=== PATIENT | male | born 1955 ===

== ENCOUNTER 2019-11-30 10:33 | Emergency (ER) | payer OTHER ==
[~2019-11-30] VITALS: Ht 165.1 cm; Wt 113.4 kg
[~2019-11-30 10:33] MED LIST: ACET325 PO; ASPI325 PO; LISI20 PO; METO50 PO; MULVITMIND PO; SIMV10 PO
[2019-11-30] MEDS ORDERED: CODACE30 PO (12:04)
[2019-11-30] MEDS ORDERED: PENVK500 PO (12:04)
== END 2019-11-30 12:23 | disposition home or self-care (01) ==
LOC: ER 10:33
DX: S01.81XA Laceration without foreign body of other part of head, initial encounter (principal); K08.89 Other specified disorders of teeth and supporting structures; Z79.899 Other long term (current) drug therapy; W22.8XXA Striking against or struck by other objects, initial encounter; Y92.89 Other specified places as the place of occurrence of the external cause
CPT/HCPCS: 12013; 99283-25

== ENCOUNTER 2019-12-05 17:23 | Emergency (ER) | payer OTHER ==
[~2019-12-05] VITALS: Ht 165.1 cm; Wt 117.9 kg
[~2019-12-05 17:23] MED LIST changes: +CODACE30 PO; +PENVK500 PO
== END 2019-12-05 17:53 | disposition other institution (70) ==
LOC: ER 17:23
DX: S01.511D Laceration without foreign body of lip, subsequent encounter (principal); Z79.899 Other long term (current) drug therapy; X58.XXXD Exposure to other specified factors, subsequent encounter

== ENCOUNTER 2021-01-02 11:46 | Inpatient (IN) | payer OTHER ==
[~2021-01-02] VITALS: Ht 170.2 cm; Wt 105.5 kg
[2021-01-02 12:40] LABS: Hematocrit 41.2 % (37.0-53.0); Hemoglobin 14.1 g/dL (13.5-17.5); Mean Corpuscular HGB 30.1 pg (26.0-34.0); Mean Corpuscular HGB Conc 34.2 g/dL (31.5-36.5); Mean Corpuscular Volume 88 fL (80-100); Mean Platelet Volume 10.2 fL (9.1-12.4); Platelet Count 257 K/mm3 (150-400); RDW Coefficient Variation 13.8 % (11.7-14.2); RDW Standard Deviation 44.2 fL (35.1-46.3); Red Blood Cell Count 4.69 M/mm3 (4.30-5.90); White Blood Cell Count 5.96 K/mm3 (4.00-11.30)
[2021-01-02 13:16] LABS: BAND PERCENT MAN 25 % (0-8); BASOPHILS PERCENT MAN 0 % (0-2); EOSINOPHILS PERCENT MAN 0 % (0-6); LYMPHOCYTES % ATYPICAL MANUAL 8 % (0-0); LYMPHOCYTES ABSOLUTE MAN 0.89 K/mm3 (0.84-5.20); LYMPHOCYTES PERCENT MAN 7 % (21-46); METAMYELOCYTE ABSOLUTE MAN 0.23 K/mm3 (0.00-0.00); METAMYELOCYTE PERCENT MAN 4 % (0-0); MONOCYTES ABSOLUTE MAN 0.17 K/mm3 (0.16-1.47); MONOCYTES PERCENT MAN 3 % (4-13); MYELOCYTE ABSOLUTE MAN 0.23 K/mm3 (0.00-0.00); MYELOCYTE PERCENT MAN 4 % (0-0); NEUTROPHILS ABSOLUTE MAN 4.41 K/mm3 (1.96-9.15); SEG NEUTROPHILS PERCENT MAN 49 % (41-73); TOTAL CELLS COUNTED 100
[2021-01-02 13:17] LABS: Alanine Aminotransfer (ALT/SGP 26 U/L (12-78); Albumin, Blood 1.5 g/dL (3.4-5.0); Albumin/Globulin Ratio 0.2 (0.8-1.8); Alk Phos 64 U/L (50-136); Anion Gap 11 mmol/L (6-16); Aspartate Aminotrans (AST/SGOT 30 U/L (12-37); Bilirubin, Total 0.7 mg/dL (0.1-1.0); Blood Urea Nitrogen 36 mg/dL (8-24); Bun/Creatinine Ratio 29.8 (12.0-20.0); CO2, Blood 22 mmol/L (21-32); Chloride, Blood 94 mmol/L (98-108); Creatinine, Blood 1.21 mg/dL (0.60-1.20); Globulin, Blood 6.2 g/dL (2.2-4.0); Glomerular Filtration Rate >60 (60-); Glucose, Blood 324 mg/dL (70-99); Potassium, Blood 4.4 mmol/L (3.5-5.5); Sodium, Blood 127 mmol/L (136-145); Total Protein, Blood 7.7 g/dL (6.4-8.2)
[2021-01-02] MEDS ORDERED: AMLO5 PO (17:01)
[2021-01-02] MEDS ORDERED: ATOR20 PO (17:02)
[2021-01-02] MEDS ORDERED: LISI20 PO (17:02)
[2021-01-02] MEDS ORDERED: ATEN100 PO (17:02)
[2021-01-02 17:22] LABS: SARS-Cov-2 (COVID-19) PCR, MMC NEGATIVE (NEGATIVE)
--- NOTE | 2021-01-02 18:43 | NUR ---
SHIFT SUMMARY PT ADMITTED FROM THE ED FOR A PERF APPY. PAINFUL UPON ARRIVE BUT WAS TREATED PER EMR AND PAIN IS NOW MANAGED. ABD IS DISTENDED AND TENDER. PT SPEAKS TOGOLESE BUT SPEAKS SOME ENGLIGH. MAY POSSIBLY GO TO SURGERY TONIGHT OR TOMORROW AM. PT KEPT NPO UNTIL SURGERY TIME IS MORE CLEAR. VSS. WILL REPORT TO URVASHI ANDERSON.
[2021-01-02 23:01] LABS: Bun/Creatinine Ratio 31.3 (12.0-20.0); Calcium, Blood 8.3 mg/dL (8.5-10.1); Creatinine, Blood 1.66 mg/dL (0.60-1.20); Potassium, Blood 4.2 mmol/L (3.5-5.5)
[2021-01-03 03:59] LABS: Hematocrit 37.9 % (37.0-53.0); Hemoglobin 12.7 g/dL (13.5-17.5); Mean Corpuscular HGB 29.6 pg (26.0-34.0); Mean Corpuscular HGB Conc 33.5 g/dL (31.5-36.5); Mean Corpuscular Volume 88 fL (80-100); Mean Platelet Volume 10.1 fL (9.1-12.4); NRBC ABSOLUTE 0.04 K/mm3 (0.00-0.02); NRBC Auto 0.7 /100 WBC (0.0-0.2); Platelet Count 198 K/mm3 (150-400); RDW Coefficient Variation 14.1 % (11.7-14.2); RDW Standard Deviation 45.6 fL (35.1-46.3); Red Blood Cell Count 4.29 M/mm3 (4.30-5.90); White Blood Cell Count 5.55 K/mm3 (4.00-11.30)
[2021-01-03 04:00] LABS: BASOPHILS ABSOLUTE AUTO 0.03 K/mm3 (0.00-0.23); BASOPHILS PERCENT AUTO 1 % (0-2); EOSINOPHILS PERCENT AUTO 0 % (0-6); IMMATURE GRAN ABSOLUTE AUTO 0.03 K/mm3 (0.00-0.10); IMMATURE GRAN PERCENT AUTO 1 % (0-1); LYMPHOCYTES ABSOLUTE AUTO 0.53 K/mm3 (0.84-5.20); LYMPHOCYTES PERCENT AUTO 10 % (21-46); MONOCYTES ABSOLUTE AUTO 0.43 K/mm3 (0.16-1.47); MONOCYTES PERCENT AUTO 8 % (4-13); NEUTROPHILS ABSOLUTE AUTO 4.53 K/mm3 (1.96-9.15); NEUTROPHILS PERCENT AUTO 82 % (41-73)
[2021-01-03 04:15] LABS: International Normalized Ratio 1.08; Prothrombin Time Results 11.3 Sec (9.7-11.5)
[2021-01-03 04:22] LABS: Bun/Creatinine Ratio 31.6 (12.0-20.0); Creatinine, Blood 1.87 mg/dL (0.60-1.20); Magnesium, Blood 3.7 mg/dL (1.6-2.4); Potassium, Blood 3.8 mmol/L (3.5-5.5)
[2021-01-03 04:36] LABS: BAND PERCENT MAN 45 % (0-8); BASOPHILS PERCENT MAN 0 % (0-2); EOSINOPHILS PERCENT MAN 0 % (0-6); LYMPHOCYTES ABSOLUTE MAN 0.49 K/mm3 (0.84-5.20); LYMPHOCYTES PERCENT MAN 9 % (21-46); METAMYELOCYTE ABSOLUTE MAN 0.77 K/mm3 (0.00-0.00); METAMYELOCYTE PERCENT MAN 14 % (0-0); MONOCYTES ABSOLUTE MAN 0.33 K/mm3 (0.16-1.47); MONOCYTES PERCENT MAN 6 % (4-13); MYELOCYTE ABSOLUTE MAN 0.44 K/mm3 (0.00-0.00); MYELOCYTE PERCENT MAN 8 % (0-0); NEUTROPHILS ABSOLUTE MAN 3.49 K/mm3 (1.96-9.15); SEG NEUTROPHILS PERCENT MAN 18 % (41-73); TOTAL CELLS COUNTED 100
--- NOTE | 2021-01-03 11:23 | NUR ---
01/03/21 1123 Ashley Warren PATIENT ON SCHEDULED ZOSYN. RECEIVED 3.375G @ 0532 01/03/21.
--- NOTE | 2021-01-03 14:04 | NUR ---
PT TO PACU, PRESTON DRESSING HOLDING SUCTION, SMALL DRAINAGE X2, ABOUT DIME SIZE EACH, SISI DRAIN EMPTIED AND NEW DRESSING APPLIED. PT W/ DISTENDED ABD, BLANCHING, SLOW CAP REFILL, MD AWARE. URINARY CATH IN PLACE, SMALL AMOUNT OF CLOUDY YELLOW DRAINAGE NOTED IN TUBING. PT WITHDRAWS FROM TOUCH. NG TUBE IN PLACE FROM OR, CONNECTED TO SUCTION AT LOW INTERMITTENT. GREEN DRAINAGE NOTED IN SUCTION TUBING.
--- NOTE | 2021-01-03 16:43 | NUR ---
ARRIVAL TO PCU/SHIFT SUMMARY PATIENT ARRIVED APROX 1530. PATIENT A/OX4. VSS. TELE SR 71. SOFT BP. SPO2 >90% ON 6L OXYIMEZER. PATIENT DAUGHTER AT BEDSIDE AND IS ABLE TO TRANSLATE FOR THE PATIENT. PATIENT IS VINCENTIAN SPEAKING. PATRICIA TUBE DRAINING, SEROSANGUINEOUS DRAINING. PRESTON DRESSING IN PLACE WITH SCANT AMOUNT OF BLOOD THAT HAS BEEN THERE SINCE PACU, NO NEW DRAINING. LEFT ABD BLANCHABLE, BUT CAP REFILL GREAT THAN 3SECONDS. MD ESPOSITO IS AWARE OF THIS. LEFT ABD TENDER. PATIENT REPORTS PAIN, AND RECEIVED PAIN MED PER EMAR. CLEAR AND DIM LUNG SOUNDS. CALL LIGHT WITHIN REACH. DAUGHTER AT BEDSIDE. WILL CONTINUE TO MONITOR AND PROVIDE CARE UNTIL HAND OFF WITH NEXT SHIFT.
[2021-01-04 04:09] LABS: Hemoglobin 12.5 g/dL (13.5-17.5); Mean Corpuscular HGB 29.8 pg (26.0-34.0); Mean Corpuscular HGB Conc 33.8 g/dL (31.5-36.5); Mean Corpuscular Volume 88 fL (80-100); Mean Platelet Volume 10.3 fL (9.1-12.4); NRBC ABSOLUTE 0.05 K/mm3 (0.00-0.02); NRBC Auto 0.5 /100 WBC (0.0-0.2); Platelet Count 194 K/mm3 (150-400); RDW Coefficient Variation 14.6 % (11.7-14.2); RDW Standard Deviation 46.7 fL (35.1-46.3); White Blood Cell Count 9.89 K/mm3 (4.00-11.30)
[2021-01-04 04:31] LABS: BAND PERCENT MAN 38 % (0-8); BASOPHILS PERCENT MAN 0 % (0-2); EOSINOPHILS PERCENT MAN 0 % (0-6); LYMPHOCYTES ABSOLUTE MAN 0.49 K/mm3 (0.84-5.20); LYMPHOCYTES PERCENT MAN 5 % (21-46); METAMYELOCYTE ABSOLUTE MAN 1.38 K/mm3 (0.00-0.00); METAMYELOCYTE PERCENT MAN 14 % (0-0); MONOCYTES ABSOLUTE MAN 0.19 K/mm3 (0.16-1.47); MONOCYTES PERCENT MAN 2 % (4-13); MYELOCYTE ABSOLUTE MAN 0.09 K/mm3 (0.00-0.00); MYELOCYTE PERCENT MAN 1 % (0-0); NEUTROPHILS ABSOLUTE MAN 7.71 K/mm3 (1.96-9.15); SEG NEUTROPHILS PERCENT MAN 40 % (41-73); TOTAL CELLS COUNTED 100
[2021-01-04 04:37] LABS: Magnesium, Blood 3.8 mg/dL (1.6-2.4)
[2021-01-04 04:49] LABS: Albumin, Blood 0.7 g/dL (3.4-5.0); Albumin/Globulin Ratio 0.1 (0.8-1.8); Bilirubin, Total 0.4 mg/dL (0.1-1.0); Bun/Creatinine Ratio 39.3 (12.0-20.0); Calcium, Blood 7.7 mg/dL (8.5-10.1); Creatinine, Blood 1.83 mg/dL (0.60-1.20); Globulin, Blood 5.6 g/dL (2.2-4.0); Potassium, Blood 4.3 mmol/L (3.5-5.5); Total Protein, Blood 6.3 g/dL (6.4-8.2)
--- NOTE | 2021-01-04 06:10 | NUR ---
SHIFT SUMMARY PT IS ALERT AND ORIENTED. PT HAS BEEN VERY PAINFUL T/O THE NIGHT AND HAS BEEN MEDICATED PER EMAR. NG DRAINING WITH SUCTION. SISI DRAINAGE IS SEROSANGUINEOUS. MEREDITH IN PLACE AND DRAINING TO GRAVITY. HAS BEEN REPOSITIONING WITH ASSISTANCE AND TOLERATES WELL. PT IS POLISH SPEAKING ONLY AND SON IS IN THE ROOM TO HELP FACILITATE CARE. PT IS ON 2L NC WITH SATS ABOVE 92%. VSS. ABDOMEN IS FIRM, DISTENDED AND TENDER. CALL LIGHT IS WITHIN REACH. WILL CONTINUE TO MONITOR.
--- NOTE | 2021-01-04 08:05 | NUR ---
CARE ASSUMPTION PATIENT A/O X4. SON AT BEDSIDE. PATIENT IS COMORAN SPEAKING. VSS. SPO2 >90% ON 2L NC. PATIENT PRESTON DRESSING IN PLACE WITH SCANT AMOUNT OF BLOOD THAT HAS REMAINED UNCHANGED SINCE ARRIVING FROM PACU. PATIENT NG TUBE DC AND REMOVED. CALL LIGHT WITHIN REACH. WILL CONTINUE TO MONITOR AND PROVIDE CARE.
--- NOTE | 2021-01-04 17:36 | NUR ---
SHIFT SUMMARY POD #1 FOR A PERF OPEN APPY. MIDLINE PRESTON DRESSING IN PLACE WITH A MINIMAL AMOUNT OF DRAINAGE NOTED, OTHERWISE CDI. SISI DRAIN TO LLQ WITH SS FLUID. PAIN MANAGED PER EMR. DAUGHTER AT BEDSIDE THIS SHIFT. GLUCOSE CHECKS CHANGED TO ACHS. VSS. WILL REPORT TO URVSAHI RN.
[2021-01-05 03:59] LABS: Hematocrit 35.5 % (37.0-53.0); Mean Corpuscular HGB 29.4 pg (26.0-34.0); Mean Corpuscular HGB Conc 33.8 g/dL (31.5-36.5); Mean Corpuscular Volume 87 fL (80-100); Mean Platelet Volume 10.5 fL (9.1-12.4); NRBC ABSOLUTE 0.06 K/mm3 (0.00-0.02); NRBC Auto 0.5 /100 WBC (0.0-0.2); Platelet Count 224 K/mm3 (150-400); RDW Coefficient Variation 14.6 % (11.7-14.2); RDW Standard Deviation 46.8 fL (35.1-46.3); Red Blood Cell Count 4.08 M/mm3 (4.30-5.90); White Blood Cell Count 11.93 K/mm3 (4.00-11.30)
[2021-01-05 04:26] LABS: Albumin, Blood 0.8 g/dL (3.4-5.0); Albumin/Globulin Ratio 0.1 (0.8-1.8); Bilirubin, Total 0.5 mg/dL (0.1-1.0); Bun/Creatinine Ratio 51.6 (12.0-20.0); Calcium, Blood 8.1 mg/dL (8.5-10.1); Creatinine, Blood 1.22 mg/dL (0.60-1.20); Globulin, Blood 5.6 g/dL (2.2-4.0); Potassium, Blood 3.7 mmol/L (3.5-5.5); Total Protein, Blood 6.4 g/dL (6.4-8.2)
[2021-01-05 05:38] LABS: BAND PERCENT MAN 42 % (0-8); BASOPHILS PERCENT MAN 0 % (0-2); EOSINOPHILS PERCENT MAN 0 % (0-6); LYMPHOCYTES ABSOLUTE MAN 0.35 K/mm3 (0.84-5.20); LYMPHOCYTES PERCENT MAN 3 % (21-46); MONOCYTES ABSOLUTE MAN 0.11 K/mm3 (0.16-1.47); MONOCYTES PERCENT MAN 1 % (4-13); MYELOCYTE ABSOLUTE MAN 0.23 K/mm3 (0.00-0.00); MYELOCYTE PERCENT MAN 2 % (0-0); NEUTROPHILS ABSOLUTE MAN 11.21 K/mm3 (1.96-9.15); SEG NEUTROPHILS PERCENT MAN 52 % (41-73); TOTAL CELLS COUNTED 100
--- NOTE | 2021-01-05 17:12 | NUR ---
SUMMARY: PT IS POD2 OPEN APPY. PT IS A/O, VSS. SURGICAL SITES WNL. CLOUDY SS FLUID FROM SISI DRAIN, SEE OUTPUT. TELE DC'D THIS MORNING. PT REPORTS NO FLATUS, HYPOACTIVE BOWEL TONES. TOLERATING CLEAR LIQ DIET, NO N/V. DENIES NEED FOR PAIN MEDICATIONS, PT ENCOURAGED TO AMBULATE TODAY, WORKED WITH THERAPY AND WALKED IN HALLS. PT FRIEND IN ROOM TODAY, AND ABLE TO TRANSLATE, PT APPEARS TO UNDERSTAND A FAIR AMT OF [place]. NO ACUTE SAFETY CONCERNS, WILL CTM AND REPORT TO URVASHI RN.
[2021-01-06 04:39] LABS: Hematocrit 36.1 % (37.0-53.0); Hemoglobin 12.3 g/dL (13.5-17.5); Mean Corpuscular HGB 29.9 pg (26.0-34.0); Mean Corpuscular HGB Conc 34.1 g/dL (31.5-36.5); Mean Corpuscular Volume 88 fL (80-100); NRBC ABSOLUTE 0.05 K/mm3 (0.00-0.02); NRBC Auto 0.3 /100 WBC (0.0-0.2); Platelet Count 255 K/mm3 (150-400); RDW Coefficient Variation 14.7 % (11.7-14.2); Red Blood Cell Count 4.12 M/mm3 (4.30-5.90); White Blood Cell Count 15.53 K/mm3 (4.00-11.30)
[2021-01-06 04:59] LABS: Anion Gap 6 mmol/L (6-16); Blood Urea Nitrogen 52 mg/dL (8-24); Bun/Creatinine Ratio 53.8 (12.0-20.0); CO2, Blood 26 mmol/L (21-32); Calcium, Blood 7.8 mg/dL (8.5-10.1); Chloride, Blood 100 mmol/L (98-108); Creatinine, Blood 0.97 mg/dL (0.60-1.20); Glomerular Filtration Rate >60 (60-); Glucose, Blood 170 mg/dL (70-99); Potassium, Blood 3.4 mmol/L (3.5-5.5); Sodium, Blood 132 mmol/L (136-145)
[2021-01-06 05:19] LABS: BAND PERCENT MAN 13 % (0-8); BASOPHILS PERCENT MAN 0 % (0-2); EOSINOPHILS PERCENT MAN 0 % (0-6); LYMPHOCYTES ABSOLUTE MAN 1.39 K/mm3 (0.84-5.20); LYMPHOCYTES PERCENT MAN 9 % (21-46); METAMYELOCYTE ABSOLUTE MAN 0.15 K/mm3 (0.00-0.00); METAMYELOCYTE PERCENT MAN 1 % (0-0); MONOCYTES ABSOLUTE MAN 0.31 K/mm3 (0.16-1.47); MONOCYTES PERCENT MAN 2 % (4-13); NEUTROPHILS ABSOLUTE MAN 13.66 K/mm3 (1.96-9.15); SEG NEUTROPHILS PERCENT MAN 75 % (41-73); TOTAL CELLS COUNTED 100
--- NOTE | 2021-01-06 08:00 | NUR ---
SUMMARY REPORTED TO ROSSI ANDERSON.DISCUSSED INCREASED WBC,SISI WITH GREEN/SERO DRNG,AND ERYTHEMA BLANCHES, BUT CONT L FLANK AND HIP.ABD REMAINS LARGELY DISTENDED WITH NO FLATUS.ROSSI ECHEVARRIA AGREES TO FOLLOW UP ON MY CONCERNS WHEN MAKES ROUNDS.
--- NOTE | 2021-01-06 16:31 | NUR ---
SUMMARY: PT IS POD3 COLECTOMY. PT IS A/O, VSS. ABD IS SERVERALY DISTENDED, PT DENIES PASSING FLATUS. SISI DRAIN DID NOT NEED EMPTIED, SCANT AMT OF CLOUDY SS FLUID PRESENT AND BULB COMPRESSED. PT REPORTS SMALL AMT OF PAIN AT INCISION AND R FLANK, DENIES NEED FOR PAIN MEDICATION. NOTED REDNESS TO L FLANK, DR. ESPOSITO IS AWARE. OTHERWISE SUGICAL SITES AND PRESTON DRAIN WNL. PT YURI CLEAR LIQ DIET WITHOUT N/V. NO SAFETY CONCERNS AT THIS TIME, WILL REPORT TO URVASHI ANDERSON.
[2021-01-07 04:28] LABS: Hematocrit 39.6 % (37.0-53.0); Hemoglobin 13.1 g/dL (13.5-17.5); Mean Corpuscular HGB 29.2 pg (26.0-34.0); Mean Corpuscular HGB Conc 33.1 g/dL (31.5-36.5); Mean Corpuscular Volume 88 fL (80-100); Mean Platelet Volume 10.1 fL (9.1-12.4); NRBC ABSOLUTE 0.03 K/mm3 (0.00-0.02); NRBC Auto 0.2 /100 WBC (0.0-0.2); Platelet Count 299 K/mm3 (150-400); RDW Coefficient Variation 14.9 % (11.7-14.2); RDW Standard Deviation 48.5 fL (35.1-46.3); Red Blood Cell Count 4.48 M/mm3 (4.30-5.90); White Blood Cell Count 16.53 K/mm3 (4.00-11.30)
[2021-01-07 04:30] LABS: BASOPHILS ABSOLUTE AUTO 0.02 K/mm3 (0.00-0.23); BASOPHILS PERCENT AUTO 0 % (0-2); EOSINOPHILS ABSOLUTE AUTO 0.08 K/mm3 (0.00-0.68); EOSINOPHILS PERCENT AUTO 1 % (0-6); IMMATURE GRAN ABSOLUTE AUTO 1.52 K/mm3 (0.00-0.10); IMMATURE GRAN PERCENT AUTO 9 % (0-1); LYMPHOCYTES PERCENT AUTO 11 % (21-46); MONOCYTES ABSOLUTE AUTO 0.47 K/mm3 (0.16-1.47); MONOCYTES PERCENT AUTO 3 % (4-13); NEUTROPHILS ABSOLUTE AUTO 12.64 K/mm3 (1.96-9.15); NEUTROPHILS PERCENT AUTO 77 % (41-73)
[2021-01-07 04:44] LABS: Alanine Aminotransfer (ALT/SGP 94 U/L (12-78); Albumin, Blood 1.3 g/dL (3.4-5.0); Albumin/Globulin Ratio 0.3 (0.8-1.8); Alk Phos 96 U/L (50-136); Anion Gap 8 mmol/L (6-16); Aspartate Aminotrans (AST/SGOT 121 U/L (12-37); Bilirubin, Total 0.5 mg/dL (0.1-1.0); Blood Urea Nitrogen 33 mg/dL (8-24); Bun/Creatinine Ratio 41.1 (12.0-20.0); CO2, Blood 25 mmol/L (21-32); Calcium, Blood 7.7 mg/dL (8.5-10.1); Chloride, Blood 100 mmol/L (98-108); Globulin, Blood 5.1 g/dL (2.2-4.0); Glomerular Filtration Rate >60 (60-); Glucose, Blood 160 mg/dL (70-99); Magnesium, Blood 3.2 mg/dL (1.6-2.4); Potassium, Blood 3.5 mmol/L (3.5-5.5); Sodium, Blood 133 mmol/L (136-145); Total Protein, Blood 6.4 g/dL (6.4-8.2)
[2021-01-07 04:57] LABS: BAND PERCENT MAN 14 % (0-8); BASOPHILS PERCENT MAN 0 % (0-2); EOSINOPHILS PERCENT MAN 0 % (0-6); LYMPHOCYTES ABSOLUTE MAN 0.99 K/mm3 (0.84-5.20); LYMPHOCYTES PERCENT MAN 6 % (21-46); METAMYELOCYTE ABSOLUTE MAN 0.49 K/mm3 (0.00-0.00); METAMYELOCYTE PERCENT MAN 3 % (0-0); MONOCYTES ABSOLUTE MAN 0.33 K/mm3 (0.16-1.47); MONOCYTES PERCENT MAN 2 % (4-13); MYELOCYTE ABSOLUTE MAN 0.66 K/mm3 (0.00-0.00); MYELOCYTE PERCENT MAN 4 % (0-0); NEUTROPHILS ABSOLUTE MAN 13.88 K/mm3 (1.96-9.15); PROMYELOCYTE ABSOLUTE MAN 0.16 K/mm3 (0.00-0.00); PROMYELOCYTE PERCENT MAN 1 % (0-0); SEG NEUTROPHILS PERCENT MAN 70 % (41-73); TOTAL CELLS COUNTED 100
--- NOTE | 2021-01-08 | NUR ---
PT CALLED RES COUNSELOR, RES COUNSELOR ENTERED ROOM TO FIND PT VOMITING INTO EMESIS BAG, 300CC. MEASURED @ THIS TIME. DR. ESPOSITO CONTACTED FOR ADDITIONAL NAUSEA MEDICATION. AWAITING RESPONSE.
--- NOTE | 2021-01-08 01:34 | NUR ---
PT APPEARS TO BE UNCOMFORTABLE. CALLED CAMPUS RECEPTIONIST TO GET AN ASSISTANCE IN ASSESSING AND EVALUATING PT'S NEED. PT REPORTS PAIN. DILAUDID 0.5MG GIVEN HALF AN HOUR AGO. PT APPEARS OUT BREATH BUT VSS. PT DENIES SOB, CHEST PAIN, NAUSEA AND VOMITING. PT HAD BEEN DRINKING A LOT OF WATER. ADVICE TO SLOW DOWN IN DRINKING WATER BECAUSE HIS ABD MAY NOT TOLERATE IT WELL. PT AGREED AND UNDERSTOOD PER CAMPUS RECEPTIONIST. PT ALSO DENIES ANY DIZZINESS. CALL LIGHT WITHIN REACH. WILL CONTINUE TO MONITOR.
[2021-01-08 02:22] LABS: Hemoglobin 15.2 g/dL (13.5-17.5); Mean Corpuscular HGB 29.6 pg (26.0-34.0); Mean Corpuscular HGB Conc 33.8 g/dL (31.5-36.5); Mean Corpuscular Volume 88 fL (80-100); NRBC ABSOLUTE 0.05 K/mm3 (0.00-0.02); NRBC Auto 0.2 /100 WBC (0.0-0.2); Platelet Count 378 K/mm3 (150-400); RDW Coefficient Variation 14.8 % (11.7-14.2); RDW Standard Deviation 47.9 fL (35.1-46.3); Red Blood Cell Count 5.13 M/mm3 (4.30-5.90); White Blood Cell Count 23.41 K/mm3 (4.00-11.30)
--- NOTE | 2021-01-08 02:35 | NUR ---
DR. ESPOSITO CONTACTED THIS RN CONTACTED DR. ESPOSITO IN REGARDS TO CHANGE IN MENTATION, INCREASING ABD DISTENTION, INCREASE IN REDDENDED AREA ON LEFT SIDE, AND N/V @ THIS TIME.
[2021-01-08 02:37] LABS: Anion Gap 12 mmol/L (6-16); Blood Urea Nitrogen 37 mg/dL (8-24); Bun/Creatinine Ratio 34.6 (12.0-20.0); CO2, Blood 21 mmol/L (21-32); Chloride, Blood 101 mmol/L (98-108); Creatinine, Blood 1.07 mg/dL (0.60-1.20); Glomerular Filtration Rate >60 (60-); Glucose, Blood 260 mg/dL (70-99); Potassium, Blood 3.7 mmol/L (3.5-5.5); Sodium, Blood 134 mmol/L (136-145)
[2021-01-08 02:40] LABS: BAND PERCENT MAN 29 % (0-8); BASOPHILS PERCENT MAN 0 % (0-2); EOSINOPHILS PERCENT MAN 0 % (0-6); LYMPHOCYTES PERCENT MAN 3 % (21-46); MONOCYTES ABSOLUTE MAN 1.17 K/mm3 (0.16-1.47); MONOCYTES PERCENT MAN 5 % (4-13); MYELOCYTE ABSOLUTE MAN 0.23 K/mm3 (0.00-0.00); MYELOCYTE PERCENT MAN 1 % (0-0); SEG NEUTROPHILS PERCENT MAN 62 % (41-73); TOTAL CELLS COUNTED 100
--- NOTE | 2021-01-08 04:36 | NUR ---
NG TUBE PLACEMENT NG TUBE WAS PLACED AT 0415 @ LIS. PT TOLERATED WELL, INTERPRETTER ON PHONE ASSISTED W/ INSTRUCTION AND CONSENT. CANISTER WAS EMPTIED @ 0435 W/ OUTPUT OF 1000ML W/ DARK RED/BROWNISH DRAINAGE, SISI DRAIN WAS EMPTIED WELL W/ 85ML (IN LAST COUPLE HOURS) W/ SS DRAINAGE. PT RESTING IN BED @ THIS TIME.
--- NOTE | 2021-01-08 05:02 | NUR ---
SHIFT SUMMARY PT C/O PAIN T/O SHIFT. MEDICATED PER EMAR, REPOSITIONED, PROVIDED W/ WARM BLANKETS. N/V T/O SHIFT, MEDICATED PER EMAR. PT CONFUSED @ TIMES. INTERPRETTER UTILIZED FOR COMMUNICATION T/O SHIFT. ABD DISTENDED AND ABSENT BOWEL SOUNDS. DR. ESPOSITO CONTACTED, PLEASE SEE NOTE. NG TUBE IN PLACE, DRAINING WELL. VSS. CALL LIGHT W/IN REACH & BED ALARM ON. LG, LIQUID BM DURING SHIFT.
[2021-01-08 08:19] LABS: Triglycerides 141 mg/dL (30-160)
[2021-01-08 11:42] LABS: Bun/Creatinine Ratio 25.4 (12.0-20.0); Calcium, Blood 7.6 mg/dL (8.5-10.1); Creatinine, Blood 1.89 mg/dL (0.60-1.20)
[2021-01-08 11:50] LABS: Vancomycin, Trough 38.5 ug/mL (5.0-10.0)
[2021-01-08 13:28] LABS: PCO2 Arterial 29.7 mmHg (35-45); PO2 Arterial 52.8 mmHg (80-100); pH Blood Arterial 7.43 (7.35-7.45)
--- NOTE | 2021-01-08 14:19 | NUR ---
PT ADMITTED TO ICU 1 FROM 213 AT 1341. PT DROWSY, AWAKENS TO VOICE, PT ORINETED TO SELF AND PLACED WITH SOME CONFUSED CONVERSATION. PT SPEAKS SOME FINNISH BUT MAORI IS HIS PRIMARY LANG. SATS 88% ON RA, 2L O2 VIA N/C PLACED. LUNGS CLEAR BUT DIMINISHED. ABD SEVERLY DISTENDED, TYMPANIC, EDEMA TO LEFT FLANK NOTED. BOWEL TONES ABSENT. AFRIN AND LIDO JELLY PLACED TO NARES NG IS TO BE ATTEMPTED PER DR ESPOSITO. DR AGUIAR HAS BEEN CONSULTED. PT RECEIVED TWO LITERS LR PRIOR TO ARRIVAL. BP STABLE, PT IN NSR RATE 70'S.
[2021-01-08 14:20] LABS: C DIFFICILE DNA NEGATIVE (Negative)
--- NOTE | 2021-01-08 14:55 | NUR ---
14F NGT PLACED TO LEFT NARE ON SECOND ATTEMPT. 1200 ORANGE/RED OUTPUT DRAINED IMMEDIATELY. NGT TO LOW CONTINOUS SX NOW. DR AGUIAR AT BEDSIDE TO SEE PT, GIVEN UPDATE. BP REMAINS STABLE.
[2021-01-08 16:23] LABS: Source, Urine Catheter
--- NOTE | 2021-01-08 16:27 | NUR ---
MEREDITH TEMP PROBE PLACED W/O DIFFICULTY, SAMPLE SENT TO LAB. SISI SAMPLE SENT TO LAB PER DR AGUIAR. PT'S DAUGHTER AND AT BEDSIDE. DR AGUIAR UPDATED FAMILY. PT'S BP IMPROVING. TEMP 100.8. ABD SLIGHTLY SOFTER AFTER NGT PLACED, STILL REMAINS SEVERELY DISTENDED. PT DENIES C/O PAIN/NAUSEA.
[2021-01-08 16:31] LABS: Appearance, Urine Hazy (Clear); Bilirubin, Urine Neg (Neg); Blood, Urine 1+ (Neg); Color, Urine Amber (P-Yellow); Glucose Qualitative, Urine 3+ (Neg); Ketones, Urine Neg (Neg); Leukocyte Esterase, Urine 1+ (Neg); Nitrite, Urine Neg (Neg); Protein, Urine 2+ (Neg); Specific Gravity, Urine 1.015 (1.003-1.022); Urobilinogen, Urine NORM (Normal)
[2021-01-08 17:19] LABS: Squamous Epithelial Cells Rare /hpf (Few)
[2021-01-08 17:20] LABS: Amorphous Light (0-Heavy); Bacteria Mod /hpf
--- NOTE | 2021-01-08 18:24 | NUR ---
PT MORE ALERT THIS EVENING, SPEECH CLEARING, MENTATION IMPROVING OVERALL. NGT OUTPUT HAS SLOWED. TPN STARTED.
[2021-01-08 18:37] LABS: Albumin, Blood 1.5 g/dL (3.4-5.0); Anion Gap 11 mmol/L (6-16); Blood Urea Nitrogen 55 mg/dL (8-24); Bun/Creatinine Ratio 23.9 (12.0-20.0); CO2, Blood 21 mmol/L (21-32); Calcium, Blood 7.3 mg/dL (8.5-10.1); Chloride, Blood 102 mmol/L (98-108); Glomerular Filtration Rate 29 (60-); Glucose, Blood 193 mg/dL (70-99); Phosphorus, Blood 5.2 mg/dL (2.5-4.9); Potassium, Blood 3.8 mmol/L (3.5-5.5); Sodium, Blood 134 mmol/L (136-145)
--- NOTE | 2021-01-08 19:45 | NUR ---
Assumed care for patient at 1900. Sleeping but easily arousable. Denied pain. NGT in place. Abdomen distended with LUQ harriet and Anibal tube in place. Repositoned with the assistance of the outgoing RN. Patient able to communicate in hong konger. Will continue to monitor.
[2021-01-09 03:42] LABS: Hematocrit 36.6 % (37.0-53.0); Hemoglobin 12.5 g/dL (13.5-17.5); Mean Corpuscular HGB 29.7 pg (26.0-34.0); Mean Corpuscular HGB Conc 34.2 g/dL (31.5-36.5); Mean Corpuscular Volume 87 fL (80-100); Mean Platelet Volume 10.4 fL (9.1-12.4); Platelet Count 365 K/mm3 (150-400); RDW Coefficient Variation 14.7 % (11.7-14.2); RDW Standard Deviation 47.3 fL (35.1-46.3); Red Blood Cell Count 4.21 M/mm3 (4.30-5.90); White Blood Cell Count 21.64 K/mm3 (4.00-11.30)
[2021-01-09 03:48] LABS: Base Excess Venous -2.3 mmol/L; Bicarbonate Venous 22.7 mmol/L (24.0-30.0); PCO2 Venous 37.7 mmHg (38-42); PO2 Venous 153 mmHg (38-42); pH Blood Venous 7.39 (7.34-7.37)
[2021-01-09 03:57] LABS: International Normalized Ratio 1.3; Prothrombin Time Results 13.4 Sec (9.7-11.5)
[2021-01-09 04:01] LABS: BAND PERCENT MAN 31 % (0-8); BASOPHILS PERCENT MAN 0 % (0-2); EOSINOPHILS PERCENT MAN 0 % (0-6); LYMPHOCYTES ABSOLUTE MAN 0.43 K/mm3 (0.84-5.20); LYMPHOCYTES PERCENT MAN 2 % (21-46); METAMYELOCYTE ABSOLUTE MAN 0.21 K/mm3 (0.00-0.00); METAMYELOCYTE PERCENT MAN 1 % (0-0); MONOCYTES ABSOLUTE MAN 0.64 K/mm3 (0.16-1.47); MONOCYTES PERCENT MAN 3 % (4-13); NEUTROPHILS ABSOLUTE MAN 20.34 K/mm3 (1.96-9.15); SEG NEUTROPHILS PERCENT MAN 63 % (41-73); TOTAL CELLS COUNTED 100
[2021-01-09 04:03] LABS: Alanine Aminotransfer (ALT/SGP 149 U/L (12-78); Albumin, Blood 1.3 g/dL (3.4-5.0); Albumin/Globulin Ratio 0.3 (0.8-1.8); Alk Phos 81 U/L (50-136); Anion Gap 9 mmol/L (6-16); Aspartate Aminotrans (AST/SGOT 192 U/L (12-37); Bilirubin, Total 0.7 mg/dL (0.1-1.0); Blood Urea Nitrogen 63 mg/dL (8-24); Bun/Creatinine Ratio 27.5 (12.0-20.0); CO2, Blood 23 mmol/L (21-32); Calcium, Blood 7.2 mg/dL (8.5-10.1); Chloride, Blood 104 mmol/L (98-108); Creatinine, Blood 2.29 mg/dL (0.60-1.20); Globulin, Blood 4.6 g/dL (2.2-4.0); Glomerular Filtration Rate 29 (60-); Glucose, Blood 225 mg/dL (70-99); Magnesium, Blood 3.8 mg/dL (1.6-2.4); Phosphorus, Blood 4.6 mg/dL (2.5-4.9); Potassium, Blood 3.5 mmol/L (3.5-5.5); Sodium, Blood 136 mmol/L (136-145); Total Protein, Blood 5.9 g/dL (6.4-8.2); Triglycerides 141 mg/dL (30-160); Vancomycin, Random 25.4 ug/mL
--- NOTE | 2021-01-09 11:03 | NUR ---
ASSUMED CARE OF PT, REPORT RCV'D FROM MONICA SIMON. PT ALERT TO VERBAL STIMULATION, PRIMARILY KISWAHILI SPEAKING BUT ABLE TO APPROPRIATELY ANSWER QUESTIONS IN TURKISH. WILL USE SALESPERSON TRAILERS AND MOTOR HOMES PHONE NEEDED. PT SKIN FLUSHED AND WARM TO TOUCH WITH CORE TEMP 101.3. LUNG SOUNDS CLEAR, SATS 94% ON 3L NC. PRESTON DRESSING TO MIDLINE WITH 2 STABLES LLQ COVERED WITH BANDAGE. ALL DRESSING C/D/I. LLQ SISI DRAIN WITH SMALL AMOUNT OF SS OUTPUT. INTRAABDOMINAL PRESSURE 20 THIS MORNING. OGT TO CONTINUOUS LOW SUCTIONS, 1000 ML OUTPUT SO FAR THIS SHIFT. TEMP MEREDITH PATENT AND DRAINING CLOUDY YELLOW URINE. LR @ 100 ML/HR, TPC @ 23 ML/HR. SEE FULL SHIFT ASSESSMENT.
[2021-01-09 14:05] LABS: Hematocrit 33.6 % (37.0-53.0); Hemoglobin 11.6 g/dL (13.5-17.5); Mean Corpuscular HGB Conc 34.5 g/dL (31.5-36.5); Mean Corpuscular Volume 87 fL (80-100); Mean Platelet Volume 10.1 fL (9.1-12.4); Platelet Count 360 K/mm3 (150-400); RDW Coefficient Variation 14.8 % (11.7-14.2); RDW Standard Deviation 47.5 fL (35.1-46.3); Red Blood Cell Count 3.87 M/mm3 (4.30-5.90); White Blood Cell Count 24.06 K/mm3 (4.00-11.30)
[2021-01-09 14:29] LABS: Albumin, Blood 1.2 g/dL (3.4-5.0); Albumin/Globulin Ratio 0.3 (0.8-1.8); Bilirubin, Total 0.5 mg/dL (0.1-1.0); Bun/Creatinine Ratio 29.8 (12.0-20.0); Calcium, Blood 7.3 mg/dL (8.5-10.1); Creatinine, Blood 2.28 mg/dL (0.60-1.20); Globulin, Blood 4.5 g/dL (2.2-4.0); Phosphorus, Blood 4.2 mg/dL (2.5-4.9); Potassium, Blood 3.5 mmol/L (3.5-5.5); Total Protein, Blood 5.7 g/dL (6.4-8.2)
[2021-01-09 14:33] LABS: International Normalized Ratio 1.18; Prothrombin Time Results 12.3 Sec (9.7-11.5)
[2021-01-09 14:39] LABS: Fibrinogen >860 mg/dL (170-430)
[2021-01-09 14:41] LABS: BAND PERCENT MAN 36 % (0-8); BASOPHILS PERCENT MAN 0 % (0-2); EOSINOPHILS PERCENT MAN 0 % (0-6); LYMPHOCYTES ABSOLUTE MAN 1.92 K/mm3 (0.84-5.20); LYMPHOCYTES PERCENT MAN 8 % (21-46); METAMYELOCYTE ABSOLUTE MAN 0.24 K/mm3 (0.00-0.00); METAMYELOCYTE PERCENT MAN 1 % (0-0); MONOCYTES ABSOLUTE MAN 0.72 K/mm3 (0.16-1.47); MONOCYTES PERCENT MAN 3 % (4-13); NEUTROPHILS ABSOLUTE MAN 21.17 K/mm3 (1.96-9.15); SEG NEUTROPHILS PERCENT MAN 52 % (41-73); TOTAL CELLS COUNTED 100
--- NOTE | 2021-01-09 19:11 | NUR ---
SHIFT SUMMARY PT HAD 2L OUTPUT FROM OGT. 70 ML FROM SISI DRAIN. OGT TO LOW/MEDIUM SUCTION TMAX 101.3. PT REMAINS ALERT AND ORIENTED, SKIN FLUSHED AND DIAPHORETIC. PT CONTINUES TO DENY PAIN, SLIGHT TENDERNESS OF LLQ. 1400 ML URINARY OUTPUT. SEE PREVIOUS NOTES FROM THIS SHIFT. WILL REPORT TO ONCOMING NURSE.
--- NOTE | 2021-01-09 19:55 | NUR ---
Assume care for patient. sleepng but easily arousable. NGT and SISI in place Wound dressing to surgical site intact and clean.Presently patient expressed dicomfort but refused pain medication.will continue to monitor.
[2021-01-10 05:08] LABS: Hematocrit 34.1 % (37.0-53.0); Hemoglobin 11.5 g/dL (13.5-17.5); Mean Corpuscular HGB 29.6 pg (26.0-34.0); Mean Corpuscular HGB Conc 33.7 g/dL (31.5-36.5); Mean Corpuscular Volume 88 fL (80-100); Mean Platelet Volume 9.9 fL (9.1-12.4); Platelet Count 379 K/mm3 (150-400); RDW Coefficient Variation 15.1 % (11.7-14.2); RDW Standard Deviation 48.2 fL (35.1-46.3); Red Blood Cell Count 3.89 M/mm3 (4.30-5.90); White Blood Cell Count 20.35 K/mm3 (4.00-11.30)
[2021-01-10 05:42] LABS: BAND PERCENT MAN 9 % (0-8); BASOPHILS PERCENT MAN 0 % (0-2); EOSINOPHILS PERCENT MAN 1 % (0-6); LYMPHOCYTES ABSOLUTE MAN 1.01 K/mm3 (0.84-5.20); LYMPHOCYTES PERCENT MAN 5 % (21-46); MONOCYTES PERCENT MAN 2 % (4-13); NEUTROPHILS ABSOLUTE MAN 18.72 K/mm3 (1.96-9.15); SEG NEUTROPHILS PERCENT MAN 83 % (41-73); TOTAL CELLS COUNTED 100
[2021-01-10 06:20] LABS: Alanine Aminotransfer (ALT/SGP 110 U/L (12-78); Albumin, Blood 1.1 g/dL (3.4-5.0); Albumin/Globulin Ratio 0.2 (0.8-1.8); Alk Phos 85 U/L (50-136); Anion Gap 6 mmol/L (6-16); Aspartate Aminotrans (AST/SGOT 118 U/L (12-37); Bilirubin, Total 0.5 mg/dL (0.1-1.0); Blood Urea Nitrogen 63 mg/dL (8-24); Bun/Creatinine Ratio 31.5 (12.0-20.0); CO2, Blood 26 mmol/L (21-32); Calcium, Blood 7.3 mg/dL (8.5-10.1); Chloride, Blood 108 mmol/L (98-108); Globulin, Blood 4.8 g/dL (2.2-4.0); Glomerular Filtration Rate 34 (60-); Glucose, Blood 214 mg/dL (70-99); Magnesium, Blood 3.7 mg/dL (1.6-2.4); Potassium, Blood 3.7 mmol/L (3.5-5.5); Sodium, Blood 140 mmol/L (136-145); Total Protein, Blood 5.9 g/dL (6.4-8.2); Vancomycin, Random 12.9 ug/mL
--- NOTE | 2021-01-10 06:30 | NUR ---
Patient slept most of the nightbut easily arousable. Mike drained 330 and drainage from NGT was 800. Medicated for pain one time. Patient's core temp went as high as 102.6 and Tylenol KS 650mg was administered. Vital signs remained stable . Patient's abdomen distended and no bowel sounds. Repositioned from side to side and no distress noted.
--- NOTE | 2021-01-10 09:25 | NUR ---
ASSUMED CARE OF PT, REPORT RCV'D FROM MONICA SIMON. PT PLEASANT AND ALERT AND ORIENTED TO VERBAL STIMULATION ABLE TO APPROPRIATELY ANSWER QUESTIONS AND FOLLOW COMMANDS, WEAKLY ASSISTS WITH REPOSITIONING. ABDOMEN DISTENDED, ABSENT BOWEL TONES X4, TENDER TO PALPATION. PT COMPLAINS OF ABDOMINAL PAIN, TREATED PER EMAR. OGT TO LOW CONTINUOUS SUCTION, SUCTION CHANGED AT 0900 AND 700 ML IMMEDIATE BILE OUT OF OGT. NSR, BUE/BLE NON PITTING EDEMA. MIDLINE INCISION COVERED WITH ABD PAD C/D/I, SISI TO LLQ WITH SS OUTPUT. TEMP MEREDITH PATENT AND DRAINING TO GRAVITY. CURRENT TEMP 100.9. LR @ 100 ML/HR, CPN @ 75 ML/HR. SEE SHIFT ASSESSMENT.
--- NOTE | 2021-01-10 11:58 | NUR ---
PT'S DAUGHTER CALLED. UPDATED WITH PT'S STATUS AND PLAN OF CARE.
--- NOTE | 2021-01-10 16:48 | NUR ---
PT'S SON AT BEDSIDE, SON REQUESTS PT BE TRANSFERRED TO [facility] FOR HIGHER LEVEL OF CARE. DR. FRANCO IN TO SPEAK WITH PT AND PT'S SON AND CALL PLACED TO DR. LANE WHO WILL ATTEMPT TRANSFER PER FAMILY REQUEST.
--- NOTE | 2021-01-10 17:02 | NUR ---
CALL PLACED TO TO [facility] REGARDING POTENTIAL TRANSFER. FACILITY GIVEN DR. LANE'S CELL PHONE NUMBER. IMAGES PUSHED TO [facility].
--- NOTE | 2021-01-10 17:20 | NUR ---
DR. ESPOSITO REQUESTING THAT SHE BE CALLED BY [facility] BY SURGEON SHE IS MOST FAMILIAR WITH PTS CASE AND DR. LANE WILL BE IN SURGERY.
--- NOTE | 2021-01-10 18:24 | NUR ---
SHIFT SUMMARY PT REMAINS ALERT AND ORIENTED, PLEASANT AND COOPERATIVE WITH CARE. PT ON 2-3 L NC, OXYGEN NEEDS INCREASE FOLLOWING ADMINISTRATION OF PAIN MEDICATIONS. PT NSR AND NORMOTENSIVE. TMAX 101.6, CURRENT TEMP 99.3. MIDLINE DRESSING REMAINS C/D/I. 130 ML SS OUTPUT FROM SISI DRAIN. 1500 ML BILIOUS OUTPUT FROM OGT, OGT REMAINS ON LOW/MID CONTINUOUS SUCTION. 1300 ML CLOUDY URINARY OUTPUT. ABDOMEN REMAIN DISTENDED, SOFT WITH OCCASIONAL TENDERNESS TO PALPATION. TPN @ 75 ML/HR. DR. ESPOSITO AT BEDSIDE SPEAKING WITH PTS SON REGARDING TRANSFER. [facility] WILL NOT ACCEPT TRANSFER AT THIS TIME. PLAN FOR CT SCAN TUESDAY. PTS DAUGHTER TO BE UPDATED BY DR. ESPOSITO VIA PHONE. SEE PREVIOUS NOTES FROM THIS SHIFT. WILL REPORT TO ONCOMING NURSE.
--- NOTE | 2021-01-10 19:00 | NUR ---
PATIENT REPORT RECEIVED FROM [facility] PATIENT AAOX4 PATIENT ROOM AIR NSR NOTED IN THE MONITOR WILL TO CONTINUE TO MONITOR
[2021-01-11 09:28] LABS: BASOPHILS ABSOLUTE AUTO 0.03 K/mm3 (0.00-0.23); BASOPHILS PERCENT AUTO 0 % (0-2); Hematocrit 23.9 % (37.0-53.0); Hemoglobin 7.7 g/dL (13.5-17.5); LYMPHOCYTES ABSOLUTE AUTO 0.48 K/mm3 (0.84-5.20); LYMPHOCYTES PERCENT AUTO 4 % (21-46); MONOCYTES ABSOLUTE AUTO 0.49 K/mm3 (0.16-1.47); MONOCYTES PERCENT AUTO 4 % (4-13); Mean Corpuscular HGB Conc 32.2 g/dL (31.5-36.5); Mean Platelet Volume 10.1 fL (9.1-12.4); Platelet Count 285 K/mm3 (150-400); RDW Coefficient Variation 15.6 % (11.7-14.2); Red Blood Cell Count 2.57 M/mm3 (4.30-5.90)
[2021-01-11 09:34] LABS: Bun/Creatinine Ratio 34.9 (12.0-20.0); Calcium, Blood 7.6 mg/dL (8.5-10.1); Creatinine, Blood 1.72 mg/dL (0.60-1.20); Phosphorus, Blood 2.3 mg/dL (2.5-4.9); Potassium, Blood 3.7 mmol/L (3.5-5.5)
[2021-01-11 09:41] LABS: EOSINOPHILS ABSOLUTE AUTO 0.03 K/mm3 (0.00-0.68); EOSINOPHILS PERCENT AUTO 0 % (0-6); IMMATURE GRAN ABSOLUTE AUTO 0.12 K/mm3 (0.00-0.10); IMMATURE GRAN PERCENT AUTO 1 % (0-1); Mean Corpuscular Volume 93 fL (80-100); NEUTROPHILS ABSOLUTE AUTO 11.65 K/mm3 (1.96-9.15); NEUTROPHILS PERCENT AUTO 91 % (41-73)
[2021-01-11 16:07] LABS: Hematocrit 32.5 % (37.0-53.0); Hemoglobin 10.7 g/dL (13.5-17.5)
--- NOTE | 2021-01-11 18:50 | NUR ---
AOx4, denies P/N/V this shift, frequent requests for ice chips, TPN continued new bag hung , HTN issues today >160 SBP, 10mg hydralazine given with little effect able to remain <160 SBP though, NSR 70s, +2 pulses throughout, remains on NC, denies SOB, shallow tachypnea 30s, dim lungs, 1 moderate BM today brown type 6, abdominal incision remain CDI, SISI drain moderate output yellow, mendieta continues concentrated urine adequate, difficulty obtaining IAP, measurments between 10-16 MD aware, NG about 450 output dark, NG remains low intermittant suction, pallitive care discussed consult with patient.
--- NOTE | 2021-01-11 19:30 | NUR ---
Assumed care for patient at 1900. Awake and alert. Complaint of abdominal pain. Repositioned. SISI drain in place. No drainage from the NGT at this time. Abdomen distended,slightly firm and no bowel sound. Will continue to monitor
[2021-01-12 04:31] LABS: Hematocrit 33.8 % (37.0-53.0); Mean Corpuscular HGB 29.3 pg (26.0-34.0); Mean Corpuscular HGB Conc 32.5 g/dL (31.5-36.5); Mean Corpuscular Volume 90 fL (80-100); Mean Platelet Volume 9.8 fL (9.1-12.4); Platelet Count 470 K/mm3 (150-400); RDW Coefficient Variation 15.4 % (11.7-14.2); RDW Standard Deviation 50.5 fL (35.1-46.3); Red Blood Cell Count 3.75 M/mm3 (4.30-5.90); White Blood Cell Count 13.38 K/mm3 (4.00-11.30)
[2021-01-12 04:57] LABS: Albumin, Blood 1.2 g/dL (3.4-5.0); Albumin/Globulin Ratio 0.2 (0.8-1.8); Bilirubin, Total 0.6 mg/dL (0.1-1.0); Bun/Creatinine Ratio 34.2 (12.0-20.0); Calcium, Blood 7.8 mg/dL (8.5-10.1); Creatinine, Blood 1.55 mg/dL (0.60-1.20); Globulin, Blood 5.2 g/dL (2.2-4.0); Magnesium, Blood 3.7 mg/dL (1.6-2.4); Potassium, Blood 3.3 mmol/L (3.5-5.5); Total Protein, Blood 6.4 g/dL (6.4-8.2)
[2021-01-12 04:58] LABS: BAND PERCENT MAN 33 % (0-8); BASOPHILS PERCENT MAN 0 % (0-2); EOSINOPHILS PERCENT MAN 0 % (0-6); LYMPHOCYTES PERCENT MAN 3 % (21-46); MONOCYTES PERCENT MAN 6 % (4-13); NEUTROPHILS ABSOLUTE MAN 12.17 K/mm3 (1.96-9.15); SEG NEUTROPHILS PERCENT MAN 58 % (41-73); TOTAL CELLS COUNTED 100
--- NOTE | 2021-01-12 06:19 | NUR ---
Patient restless most of the shift. BP above 160 and medicated with Hydralazine 10mg and Labetalol 20mg one time respectively. NGT in place and only drained 50ml during this shift.. Patient moved his bowel. His abdomen remains firm with no BS.He was medicated for abdominal pain 5/10 with Dilaudid 0.5mg iv.
--- NOTE | 2021-01-12 11:48 | NUR ---
CARE OF PT ASSUMED THIS AM AT 0700. PT AWAKE SPITTING BILE INTO EMESIS BAG THIS AM. NGT TO LIS NOT WORKING PROPERLY, SUCTION FIXED. PT'S NGT PUT OUT 2L BILE WITHIN 5MIN MIN OF BEING PLACED TO CONT SX. PT NOW ON LIS. DR ESPOSITO IN TO SEE PT THIS AM, CT OF ABD ORDERED. PT MAY BE TRANSFERED TO SURGICAL FLOOR TODAY. PT/OT ASSISTED PT UP TO CHAIR. ABD BINDER ON, PT TOLERATED PT/OT VERY WELL. MILLY TO ABD INTACT UNDER ABD DRSG. SISI DRAIN TO LEFT ABD.
--- NOTE | 2021-01-12 17:38 | NUR ---
PT TO CT THIS AFTERNOON AROUND 1300, THEN UP TO CHAIR AGAIN. DR ESPOSITO CALLED AND GIVEN UPDATE. PT STATUS CHANGED TO SURGICAL. PT W/O C/O PAIN, DENIES NAUSEA, YURI ICE CHIPS, ALTHOUGH NGT REMAINS AT LIS. MINIMAL SISI DRAINAGE TODAY AT 30CC. PT PUT OUT 600CC ADDITIONAL FLUID TODAY FROM NGT AFTER THIS AM'S 2L. PT/OT WORKED W PT TODAY. PT ABLE TO BEAR WEIGHT AND TRANSFER W WALKER AND GAIT BELT, ABD BINDER ON WHILE UP.
--- NOTE | 2021-01-12 18:41 | NUR ---
PATIENT ARRIVED TO ROOM 231 AT AROUND 1700 TODAY FROM ICU. PATIENT ARRIVED IN CHAIR. PATIENT AAOX3, AUSTRIAN SPEAKING, BUT DOES UNDERSTAND SOME POLISH. NGT TO LEFT NARE, PULLED BACK 3CM PER ORDERS, PATIENT TOLERATED WELL. GREEN/BILE COLOR DRAINAGE NOTED FROM NGT IN CANNISTER, HOOKED TO LOW INTERMITTANT SUCTION. DOUBLE LUMEN PICC TO LEFT UPPER ARM, CPN CONTINUED FROM ICU, FLUSHED PICC, FLUSHES WELL. MEREDITH CATH PATENT DRAINING CLEAR CORAL COLOR URINE. ABDOMEN DISTENDED/OBESE, NO BOWEL SOUNDS NOTED. MIDLINE INCISION WITH MILLY, SISI DRAIN NOTED TO ABDOMEN. ROOM AIR. PATIENT REMAINS NPO WITH A FEW ICE CHIPS. SITTING UP IN CHAIR LOOKING AT THE TV. NO SIGN OR SYMPTOMS ACUTE DISTRESS NOTED, NO COMPLAINTS OF PAIN OR NAUSEA VOICED AT THIS TIME. WILL MONITOR.
[2021-01-13 04:54] LABS: Hematocrit 30.6 % (37.0-53.0); Hemoglobin 9.8 g/dL (13.5-17.5); Mean Corpuscular HGB 29.4 pg (26.0-34.0); Mean Corpuscular Volume 92 fL (80-100); Mean Platelet Volume 9.8 fL (9.1-12.4); Platelet Count 454 K/mm3 (150-400); RDW Coefficient Variation 15.6 % (11.7-14.2); RDW Standard Deviation 52.2 fL (35.1-46.3); Red Blood Cell Count 3.33 M/mm3 (4.30-5.90); White Blood Cell Count 9.28 K/mm3 (4.00-11.30)
[2021-01-13 05:15] LABS: Albumin, Blood 1.1 g/dL (3.4-5.0); Albumin/Globulin Ratio 0.2 (0.8-1.8); Bilirubin, Total 0.5 mg/dL (0.1-1.0); Bun/Creatinine Ratio 30.9 (12.0-20.0); Calcium, Blood 7.5 mg/dL (8.5-10.1); Creatinine, Blood 1.49 mg/dL (0.60-1.20); Globulin, Blood 4.9 g/dL (2.2-4.0); Phosphorus, Blood 2.5 mg/dL (2.5-4.9); Potassium, Blood 3.5 mmol/L (3.5-5.5)
[2021-01-13 05:30] LABS: BAND PERCENT MAN 15 % (0-8); BASOPHILS PERCENT MAN 0 % (0-2); EOSINOPHILS PERCENT MAN 0 % (0-6); LYMPHOCYTES % ATYPICAL MANUAL 2 % (0-0); LYMPHOCYTES ABSOLUTE MAN 1.11 K/mm3 (0.84-5.20); LYMPHOCYTES PERCENT MAN 10 % (21-46); METAMYELOCYTE ABSOLUTE MAN 0.18 K/mm3 (0.00-0.00); METAMYELOCYTE PERCENT MAN 2 % (0-0); MONOCYTES ABSOLUTE MAN 0.18 K/mm3 (0.16-1.47); MONOCYTES PERCENT MAN 2 % (4-13); NEUTROPHILS ABSOLUTE MAN 7.79 K/mm3 (1.96-9.15); SEG NEUTROPHILS PERCENT MAN 69 % (41-73); TOTAL CELLS COUNTED 100
--- NOTE | 2021-01-13 06:36 | NUR ---
PT IS A/OX3. ABLE TO MAKE HIS NEEDS KNOWN. PLEASANT AND COOPERATIVE WITH STAFF AND HIS CARE. FRISIAN IS PRIMARY LANGUAGE, EGYPTIAN IS SECOND LANGUAGE. HE DOES SPEAK AND UNDERSTAND EGYPTIAN. MEDICATED FOR PAIN X1 WITH PRN DILAUDID. GOOD RESULTS. ABD IS SOFTLY DISTENDED. NO BT'S. DENIED ANY N/V. ABD MIDLINE INCISION INTACT W/MILLY, COVERED WITH GAUZE DRSG. DRSG CDI. LQ SISI DRAIN PATENT, MINIMAL OUTPUT OF YELLOW DRNG. SISI BULB COMPRESSED. ABD BINDER IN PLACE. MEREDITH PATENT, DRAINING CLEAR/YELLOW URINE. DRNG BAG TO GRAVITY AND OFF FLOOR. NPO EXCEPT A FEW ICE CHIPS. NGT TO LT NARE AND SET TO LIS. DARK GREEN DRNG FROM NGT. TELE: SR. PEGUERO 18GA DOUBLE LUMEN PICC PATENT, INFUSING IVF/IV ABX AND CPN. CBS. ON ROOM AIR. HE WAS 3 PERSON ASSIST TO TRANFERS FROM CHAIR TO BED: 2 TO ASSIST W/TRANSFER, 1 TO HOLD ALL TUBINGS. POD 9.
--- NOTE | 2021-01-13 10:23 | NUR ---
RECIEVED REPORT FROM MONICA BARAHONA AT 0700 THIS AM. PATIENT HAD A GOOD NIGHT PER REPORT. AT THIS TIME PATIENT ASSISTED UP TO CHAIR WITH 2 PERSON ASSIST, GAIT BELT AND WALKER. PATIENT DID ALL THE WORK, MAINLY STAFF THERE FOR STANDBY ASSIST AND LINE MANAGEMENT. NGT TO LEFT NARE IN PLACE AND DRAINING GREEN/BILE COLOR DRAINAGE TO LISKIMBER CHANGED THIS AM ALREADY THIS SHIFT. PATIENT HAS NO COMPLAINTS OF PAIN OR NAUSEA. MEREDITH PATENT, PICC LINE PATENT. BLOOD CULTURES DRAWN THIS AM. NEW ORDERS RECIEVED FOR ANTIBIOTIC CHANGE, 1L BOLUS OF LR GIVEN. DRESSING TO ABD MIDLINE CDI. AAOX3, ABLE TO MAKE NEEDS AND WANTS KNOWN.
--- NOTE | 2021-01-13 17:51 | NUR ---
PATIENT LAYING IN BED AT THIS TIME. NO SIGNS OR SYMPTOMS ACUTE DISTRESS NOTED. NO COMPLAINTS OF NAUSEA OR PAIN. AAOX3. ABLE TO MAKE NEEDS AND WANTS KNOWN. OUTPUT FOR NGT TODAY WAS 1850ML OF GREEN/BILE COLOR DRAINAGE. MEREDITH CATH PATENT WITH CORAL COLOR URINE NOTED. SISI DRAIN WITH MINIMAL OUTPUT NOTED. DRESSING TO MIDLINE ABD CDI, ABD BINDER IN PLACE. CONTINUES TPN VIA PICC. ICE CHIPS TAKEN AT A MINIMUM. CALL LIGHT IN EASY REACH. UP TO CHAIR TWICE TODAY. USE OF WALKER AND GAIT BELT WITH SBA ONLY. WILL MONITOR.
[2021-01-13 17:53] LABS: Creatinine, Blood 1.5 mg/dL (0.60-1.20); Potassium, Blood 3.5 mmol/L (3.5-5.5)
[2021-01-14 03:49] LABS: BASOPHILS ABSOLUTE AUTO 0.03 K/mm3 (0.00-0.23); BASOPHILS PERCENT AUTO 0 % (0-2); Hematocrit 31.5 % (37.0-53.0); LYMPHOCYTES ABSOLUTE AUTO 1.13 K/mm3 (0.84-5.20); LYMPHOCYTES PERCENT AUTO 13 % (21-46); MONOCYTES ABSOLUTE AUTO 0.55 K/mm3 (0.16-1.47); MONOCYTES PERCENT AUTO 7 % (4-13); Mean Corpuscular HGB 29.3 pg (26.0-34.0); Mean Corpuscular HGB Conc 31.7 g/dL (31.5-36.5); Mean Corpuscular Volume 92 fL (80-100); Mean Platelet Volume 9.7 fL (9.1-12.4); Platelet Count 457 K/mm3 (150-400); RDW Coefficient Variation 15.7 % (11.7-14.2); Red Blood Cell Count 3.41 M/mm3 (4.30-5.90); White Blood Cell Count 8.41 K/mm3 (4.00-11.30)
[2021-01-14 03:53] LABS: EOSINOPHILS ABSOLUTE AUTO 0.04 K/mm3 (0.00-0.68); EOSINOPHILS PERCENT AUTO 1 % (0-6); IMMATURE GRAN ABSOLUTE AUTO 0.05 K/mm3 (0.00-0.10); IMMATURE GRAN PERCENT AUTO 1 % (0-1); NEUTROPHILS ABSOLUTE AUTO 6.61 K/mm3 (1.96-9.15); NEUTROPHILS PERCENT AUTO 79 % (41-73)
[2021-01-14 04:08] LABS: Albumin, Blood 1.2 g/dL (3.4-5.0); Anion Gap 3 mmol/L (6-16); Blood Urea Nitrogen 38 mg/dL (8-24); CO2, Blood 27 mmol/L (21-32); Calcium, Blood 7.5 mg/dL (8.5-10.1); Chloride, Blood 125 mmol/L (98-108); Creatinine, Blood 1.41 mg/dL (0.60-1.20); Glomerular Filtration Rate 51 (60-); Glucose, Blood 154 mg/dL (70-99); Magnesium, Blood 3.2 mg/dL (1.6-2.4); Phosphorus, Blood 2.3 mg/dL (2.5-4.9); Potassium, Blood 3.7 mmol/L (3.5-5.5); Sodium, Blood 155 mmol/L (136-145)
--- NOTE | 2021-01-14 09:40 | NUR ---
PATIENT LYING IN BED WITH NO SIGNS OR SYMPTOMS ACUTE DISTRESS NOTED. PATIENT HAD 2 VERY LOOSE STOOLS THROUGH THE NIGHT PER NIGHT NURSE, MEREDITH CATH REMOVED PER ORDER AT THIS TIME. PATIENT TOLERATED WELL. BOWEL SOUNDS ARE PRESENT. FLUSHED NGT THIS AM WITH 60 ML H2O DUE TO NOT HAVING ANY RETURN THROUGH THE NIGHT, 500 ML GREEN/BILE COLORED DRAINAGE IMMEDIATLY RETURNED TO CANNISTER. NGT TO LIS.
--- NOTE | 2021-01-14 18:24 | NUR ---
PATIENT CURRENTLY LYING IN BED WITH NO SIGNS OR SYMPTOMS ACUTE DISTRESS NOTED AT THIS TIME. PATIENT STATES HE HAS BEEN TIRED TODAY. HE WAS UP TO CHAIR WITH THERAPY TODAY AND DID WELL. HE STAYED UP IN CHAIR WHILE HE HAD A VISITOR FOR ABOUT 2 HOURS. PATIENT HAD A TOTAL OF 240ML ICE CHIPS TODAY. 1700 TOTAL OUT IN HIS NGT CANNISTER. SISI DRAIN OUTPUT WAS 3 ML. NO COMPLAINTS OF PAIN OR NAUSEA. WILL CONTINUE TO MONITOR.
[2021-01-15 04:42] LABS: Albumin, Blood 1.2 g/dL (3.4-5.0); Anion Gap 3 mmol/L (6-16); Blood Urea Nitrogen 32 mg/dL (8-24); Bun/Creatinine Ratio 22.9 (12.0-20.0); CO2, Blood 27 mmol/L (21-32); Calcium, Blood 7.2 mg/dL (8.5-10.1); Chloride, Blood 119 mmol/L (98-108); Glomerular Filtration Rate 51 (60-); Glucose, Blood 180 mg/dL (70-99); Magnesium, Blood 2.6 mg/dL (1.6-2.4); Potassium, Blood 3.9 mmol/L (3.5-5.5); Sodium, Blood 149 mmol/L (136-145)
--- NOTE | 2021-01-15 06:24 | NUR ---
PT IS A/OX3. MACANESE IS HIS PRIMARY LANGUAGE, BUT CAN SPEAK/UNDERSTAND MAURITANIAN. ABLE TO MAKE HIS NEEDS KNOWN. NO EVENTS OVER NIGHT. NPO EXCEPT ICE CHIPS. ABD IS DISTENDED, ROUND, SOFT. BT'S POS BUT HYPO. MIDLINE INCISION W/MILLY & COVERED WITH ABD PAD. ABD BINDER IN PLACE. LQ SISI DRAIN PATENT, MINIMAL YELLOW DRNG IN BULB - NOT ENOUGH TO MEASURE. BULB COMPRESSED. NGT TO LT NARE AND SET TO LIS. DARK GREEN EFFLUENT FROM NGT. MEREDITH WAS D/C'D YESTERDAY. VOIDING WELL, USING URINAL. LUE DOUBLE LUMEN 18 G PICC PATENT.
--- NOTE | 2021-01-15 10:28 | NUR ---
NGT CLAMPED AT THIS TIME PER ORDER
--- NOTE | 2021-01-15 15:28 | NUR ---
NGT UNCLMAPED AND SET TO LOW SUCTION AT THIS TIME, TOTAL OF 50ML OUTPUT DRAINED. ICE CHIPS THAT PT ATE WHILE NGT CLAMPED SUBTRACTED FROM THIS VALUE. PT DENIES N/V, DR ESPOSITO MADE AWARE.
--- NOTE | 2021-01-15 17:17 | NUR ---
SUMMARY: PT IS S/P R KARSTEN COLECTOMY. A/O, VSS, TELE WNL. SURGICAL SITE WNL, SISI NOT EMPTIED THIS SHIFT, MINIMAL OUTPUT. PT ABLE TO AMBULATE IN ROOM WITH THERAPY AND SPENT MOST OF THE DAY IN RECLINER. NGT REMOVED TONIGHT BY DR. ESPOSITO, PT TOLERATING ICE CHIPS WITHOUT N/V. PT HAD A BM TODAY. AT BEDSIDE, NO ACUTE CONCERNS AT THIS TIME, WILL CTM AND REPORT TO URVASHI ANDERSON.
--- NOTE | 2021-01-16 06:15 | NUR ---
AOX4. NO ACUTE DISTRESS NOTED. INSSIOSION WAS CLEANSED WTH NS. ABD DRESSING WAS APPLIED ON THE LOWER PART OF INCISION. PATIENT STILL ON TPN. BED AT THE LOWEST AND LOCKED. CALL LIGHT WITHIN REACH.
[2021-01-16 06:17] LABS: Magnesium, Blood 2.4 mg/dL (1.6-2.4)
[2021-01-16 06:18] LABS: Anion Gap 6 mmol/L (6-16); Blood Urea Nitrogen 26 mg/dL (8-24); Bun/Creatinine Ratio 20.6 (12.0-20.0); CO2, Blood 24 mmol/L (21-32); Calcium, Blood 6.4 mg/dL (8.5-10.1); Chloride, Blood 101 mmol/L (98-108); Creatinine, Blood 1.26 mg/dL (0.60-1.20); Glomerular Filtration Rate 58 (60-); Glucose, Blood 533 mg/dL (70-99); Phosphorus, Blood 3.4 mg/dL (2.5-4.9); Potassium, Blood 3.6 mmol/L (3.5-5.5); Sodium, Blood 131 mmol/L (136-145); Triglycerides 125 mg/dL (30-160)
--- NOTE | 2021-01-16 08:11 | NUR ---
REPEAT RENAL PANEL ORDERED, SPOKE WITH DR Leonardo HANKINS AT ABOUT 0800 AT PT BEDSIDE. ORDER TO HOLD POTASSIUM CHLORIDE INFUSION UNTIL NEW RESULTS COME. WILL NOTIFY DR. HANKINS WITH RESULTS
[2021-01-16 08:39] LABS: Albumin, Blood 1.1 g/dL (3.4-5.0); Anion Gap 3 mmol/L (6-16); Blood Urea Nitrogen 29 mg/dL (8-24); Bun/Creatinine Ratio 21.3 (12.0-20.0); CO2, Blood 26 mmol/L (21-32); Calcium, Blood 7.1 mg/dL (8.5-10.1); Chloride, Blood 112 mmol/L (98-108); Creatinine, Blood 1.36 mg/dL (0.60-1.20); Glomerular Filtration Rate 53 (60-); Glucose, Blood 154 mg/dL (70-99); Phosphorus, Blood 3.6 mg/dL (2.5-4.9)
[2021-01-16 08:40] LABS: Sodium, Blood 141 mmol/L (136-145)
--- NOTE | 2021-01-16 10:20 | NUR ---
NOC RN NOTED POSSIBLE SIGNS OF SLEEP APNEA IN PT TO THIS RN. THIS WAS DISCUSSED WITH DR. HANKINS WHO REPORTED THAT USING SUPPLIMENTAL 02 OK, AND UNABLE TO DO SLEEP STUDY WHILE AT THE HOSPITAL. NO NEW ORDERS AT THIS TIME.
[2021-01-16 13:56] LABS: Albumin, Blood 1.2 g/dL (3.4-5.0); Anion Gap 6 mmol/L (6-16); Blood Urea Nitrogen 29 mg/dL (8-24); Bun/Creatinine Ratio 21.6 (12.0-20.0); CO2, Blood 24 mmol/L (21-32); Calcium, Blood 7.2 mg/dL (8.5-10.1); Chloride, Blood 112 mmol/L (98-108); Creatinine, Blood 1.34 mg/dL (0.60-1.20); Glomerular Filtration Rate 54 (60-); Glucose, Blood 144 mg/dL (70-99); Phosphorus, Blood 3.3 mg/dL (2.5-4.9); Potassium, Blood 4.3 mmol/L (3.5-5.5); Sodium, Blood 142 mmol/L (136-145)
--- NOTE | 2021-01-16 14:26 | NUR ---
Per chart review with Dr. Durand, pt. not yet appropriate for discharge as they are still in the process of advancing his diet slowly. Potential to be ready over the weekend or on Tuesday. Packet sent to [facility] for review. Pt. has insurance that requires prior auth to be completed by facility and takes at least 24 hours to process. Amy will start process today. Discharge packet placed outside of his room in lock box. If discharged over the weekend D/C orders, med rec, and negative COVID results within 24 hours will need to be added to packet. Note placed on discharge packet with number for Loan with [facility] who can schedule transport (Loan [phone]). Attempted to contact patient's to provide update, but unable to reach her.
--- NOTE | 2021-01-16 17:15 | NUR ---
SUMMARY: PT IS S/P R KARSTEN COLECTOMY. A/O, VSS. PT UP TO RECLINER FOR MEALS TODAY AND WALKED TO BATHROOM X2 FOR BM'S. BMS ARE LIQUID AND DARK BROWN. ABD CONTINUES TO BE MOD TO SEVERLY DISTENDED. BOWEL TONES ARE HYPOACTIVE. PT REPORTED NAUSEA WITH CLEAR LIQUIDS TODAY AND UNABLE TO FINISH JELLO OR SOUP, DENIED NEED FOR MEDICATIONS, NO EMESIS. MIDLINE ABD SURGICAL SITE DRESSING CHANGED X2 TODAY, ONCE BY DR. ESPOSITO THIS MORNING AND ONCE THIS EVENING BY THIS RN. THIS EVENING WOUND SITE APPEARED TO HAVE SMALL AMT OF PURULET DRAINAGE THAT HAD LEAKED THROUGH THE BINDER. DRAINAGE APPEARED AFTER PT AMBULATED TO BATHROOM. DR. DUARTE MADE AWARE. OLD DRESSING REMOVED AND PACKED WITH ALGINATE, THEN COVERED WITH ABD PAD AND BINDER PLACED OVER TOP PER ORDER. PT HAS DENIED PAIN TODAY. NO ACUTE SAFETY CONCERNS AT THIS TIME. WILL CTM AND REPORT TO NOC RN.
[2021-01-17 04:23] LABS: Hematocrit 27.4 % (37.0-53.0); Hemoglobin 8.9 g/dL (13.5-17.5); Mean Corpuscular HGB 29.9 pg (26.0-34.0); Mean Corpuscular HGB Conc 32.5 g/dL (31.5-36.5); Mean Corpuscular Volume 92 fL (80-100); Platelet Count 344 K/mm3 (150-400); RDW Coefficient Variation 15.1 % (11.7-14.2); RDW Standard Deviation 50.9 fL (35.1-46.3); Red Blood Cell Count 2.98 M/mm3 (4.30-5.90); White Blood Cell Count 6.17 K/mm3 (4.00-11.30)
[2021-01-17 04:38] LABS: Albumin, Blood 1.1 g/dL (3.4-5.0); Anion Gap 2 mmol/L (6-16); Blood Urea Nitrogen 30 mg/dL (8-24); Bun/Creatinine Ratio 23.1 (12.0-20.0); CO2, Blood 26 mmol/L (21-32); Calcium, Blood 7.3 mg/dL (8.5-10.1); Chloride, Blood 114 mmol/L (98-108); Glomerular Filtration Rate 56 (60-); Glucose, Blood 160 mg/dL (70-99); Magnesium, Blood 2.2 mg/dL (1.6-2.4); Phosphorus, Blood 3.1 mg/dL (2.5-4.9); Potassium, Blood 4.3 mmol/L (3.5-5.5); Sodium, Blood 142 mmol/L (136-145)
[2021-01-17 04:41] LABS: BAND PERCENT MAN 1 % (0-8); BASOPHILS PERCENT MAN 0 % (0-2); EOSINOPHILS ABSOLUTE MAN 0.06 K/mm3 (0.00-0.68); EOSINOPHILS PERCENT MAN 1 % (0-6); LYMPHOCYTES ABSOLUTE MAN 0.43 K/mm3 (0.84-5.20); LYMPHOCYTES PERCENT MAN 7 % (21-46); MONOCYTES ABSOLUTE MAN 0.43 K/mm3 (0.16-1.47); MONOCYTES PERCENT MAN 7 % (4-13); MYELOCYTE ABSOLUTE MAN 0.06 K/mm3 (0.00-0.00); MYELOCYTE PERCENT MAN 1 % (0-0); NEUTROPHILS ABSOLUTE MAN 5.18 K/mm3 (1.96-9.15); SEG NEUTROPHILS PERCENT MAN 83 % (41-73); TOTAL CELLS COUNTED 100
--- NOTE | 2021-01-17 06:35 | NUR ---
AAOX4. NO ACUTE DISTRESS NOTED. WAS ABLE TO USE THE WALKER AND 2 ASSISTANTS TO GO TO THE BATHROOM. BED AT THE LOWEST SIDE. HAD ONE BM. CALL LIGHT WITHIN REACH. NO BERBALIZED NEEDS AT THIS TIME.
--- NOTE | 2021-01-17 13:23 | NUR ---
WET TO DRY DRESSING CHANGE TWICE TODAY. THIS A.M. OPEN AREA CLEAN AND FLUSHED WITH NS, STERILE GUAZE (WET)ADDED, COVER WITH 4X4 AND ABD. THIS AFTERNOON UP WITH ASSIST OF 2 , FWW AND GAIT BELT TO BATHROOM AND THEN TO CHAIR. TOLERATE WELL. NOTED LIGHT WATERMAN DRAINAGE FROM ABDOMEN SITE, CLEANSED AND NOTED SMALL AMOUNT OF PUS LIKE DRAINAGE FROM LOWER ABDOMINAL OPEN AREA. WET TO DRY NEW DRSG AND PT. REMAIN UP IN CHAIR. BINDER ON. TAKING SMALL AMOUNT CLR. LIQUID. DENIES PAIN, DENIES NAUSEA.
[2021-01-18 04:47] LABS: Albumin, Blood 1.2 g/dL (3.4-5.0); Anion Gap 4 mmol/L (6-16); Blood Urea Nitrogen 27 mg/dL (8-24); Bun/Creatinine Ratio 21.8 (12.0-20.0); CO2, Blood 24 mmol/L (21-32); Calcium, Blood 7.8 mg/dL (8.5-10.1); Chloride, Blood 114 mmol/L (98-108); Creatinine, Blood 1.24 mg/dL (0.60-1.20); Glomerular Filtration Rate 59 (60-); Glucose, Blood 149 mg/dL (70-99); Magnesium, Blood 2.4 mg/dL (1.6-2.4); Phosphorus, Blood 3.2 mg/dL (2.5-4.9); Potassium, Blood 4.4 mmol/L (3.5-5.5); Sodium, Blood 142 mmol/L (136-145)
--- NOTE | 2021-01-18 06:32 | NUR ---
AAOX4. NO ACUTE DISTRESS NOTED. ABD DRESSING WAS CHANGED BASED ON THE WOUND CARE INSTRUCTIONS. HAD SOME PAIN DURING THE NIGHT AND WAS REDUCED BY PAIN MEDS. CALL LIGHT WITHIN REACH. BED AT LOWEST SIDE. NO VERBALIZD NEEDS AT THIS TIME
--- NOTE | 2021-01-18 17:27 | NUR ---
SHIFT SUMMARY Patient up in chair today and tolerate well. Taking small amount of fluids at a time (clears) and ice chips. Up to bathroom with gait belt, one assist and fww, tolerate well and pt. had medium amount brown/dk. grn stool, formed. States he "feels better" since bm. Abdomen cont. to be distended. Lasix 20 mg iv given today and pt. void 600ml out and then 300ml for total of 900ml. at this time is sleeping. Denies any pain today. in to visit for a couple hours.
[2021-01-19 04:46] LABS: Magnesium, Blood 2.3 mg/dL (1.6-2.4)
[2021-01-19 04:47] LABS: Albumin, Blood 1.3 g/dL (3.4-5.0); Anion Gap 4 mmol/L (6-16); Blood Urea Nitrogen 24 mg/dL (8-24); Bun/Creatinine Ratio 21.1 (12.0-20.0); CO2, Blood 24 mmol/L (21-32); Calcium, Blood 7.8 mg/dL (8.5-10.1); Chloride, Blood 115 mmol/L (98-108); Creatinine, Blood 1.14 mg/dL (0.60-1.20); Glomerular Filtration Rate >60 (60-); Glucose, Blood 163 mg/dL (70-99); Phosphorus, Blood 3.2 mg/dL (2.5-4.9); Potassium, Blood 4.7 mmol/L (3.5-5.5); Sodium, Blood 143 mmol/L (136-145)
--- NOTE | 2021-01-19 06:38 | NUR ---
AAOX4. PATIENT HAD NO PAIN DURING THE NIGHT. ABD INCISION WAS CLEANSED AND CLEANED UP ALSO DRESSED UP WET TO DRY. NO ACUTE DISTRESS NOTED AT THIS TIME. CALL LIGHT WITHIN REACH. BED AT LOWEST POSITION. NO NEEDS VERBALIZED AT THIS TIME.
--- NOTE | 2021-01-19 11:36 | NUR ---
UPDATE 01/19/21: 65 YOM ADMITTED WITH PERFORATED APPENDICITIS. 17TH DAY OF HOSPITALIZATION AND 16 DAYS POST-OP. PT/OT RECOMMENDATION FOR SNF. FAXED ALL RELEVANT CHART NOTES TO SNF ON TUESDAY LAST WEEK. AT THAT TIME PT. WAS NOT YET APPROPRIATE FOR DISCHARGE. PATIENT'S INSURANCE WILL NEED A PRIOR AUTH THAT TAKES AT LEAST 24 HOURS FOR THE SNF TO RECEIVE AFTER REQUEST. I HAVE REQUESTED THAT THE OBTAIN PRIOR AUTH SOON TO ENSURE THAT IT DOES NOT DELAY DISCHARGE TO FACILITY. ANTICIPATE NEEDS AT TIME OF DISCHARGE TO INCLUDE: PRIOR AUTH, SNF PLACEMENT, D/C ORDERS, MED REC, AND NEGATIVE COVID RESULTS WITHIN 24 HOURS WILL NEED TO BE ADDED TO PACKET (CURRENTLY IN LOCK BOX OUTSIDE OF ROOM).
--- NOTE | 2021-01-19 16:05 | NUR ---
PATIENT TIRED TODAY. NO SIGNS OR SYMPTOMS ACUTE DISTRESS NOTED. NO COMPLAINTS OF PAIN OR NAUSEA. PATIENT IS CURRENTLY WALKING WITH PHYSICAL THERAPY IN THE TRIMBLE. DOING WELL. PATIENT DOES NOT HAVE A GOOD APPETITE. DIET HAS BEEN ADVANCED TO FULL LIQUID. DRESSING TO ABDOMEN WAS CHANGED AT 1200 TODAY DO TO DRAINAGE LEAKING FROM DRESSING. NO ODOR NOTED TO WOUND BUT A MODERATE AMOUNT OF YELLOW COLOR DRAINAGE NOTED. CONTINUES IV ANTIBIOTICS AND CPN CONTINUES. CALL LIGHT AND WATER IN EASY REACH. ABLE TO MAKE NEEDS AND WANTS KNOWN. AAOX4. PATIENT ALSO WORKED WELL WITH OCCUPATIONAL THERAPY EARLIER TODAY. WILL CONTINUE TO MONITOR.
[2021-01-20 04:02] LABS: BASOPHILS ABSOLUTE AUTO 0.02 K/mm3 (0.00-0.23); BASOPHILS PERCENT AUTO 0 % (0-2); EOSINOPHILS PERCENT AUTO 0 % (0-6); Hematocrit 28.2 % (37.0-53.0); Hemoglobin 8.9 g/dL (13.5-17.5); IMMATURE GRAN ABSOLUTE AUTO 0.03 K/mm3 (0.00-0.10); IMMATURE GRAN PERCENT AUTO 0 % (0-1); LYMPHOCYTES ABSOLUTE AUTO 1.11 K/mm3 (0.84-5.20); LYMPHOCYTES PERCENT AUTO 16 % (21-46); MONOCYTES ABSOLUTE AUTO 0.56 K/mm3 (0.16-1.47); MONOCYTES PERCENT AUTO 8 % (4-13); Mean Corpuscular HGB 29.2 pg (26.0-34.0); Mean Corpuscular HGB Conc 31.6 g/dL (31.5-36.5); Mean Corpuscular Volume 93 fL (80-100); Mean Platelet Volume 9.8 fL (9.1-12.4); NEUTROPHILS ABSOLUTE AUTO 5.11 K/mm3 (1.96-9.15); NEUTROPHILS PERCENT AUTO 75 % (41-73); Platelet Count 293 K/mm3 (150-400); RDW Standard Deviation 51.4 fL (35.1-46.3); Red Blood Cell Count 3.05 M/mm3 (4.30-5.90); White Blood Cell Count 6.83 K/mm3 (4.00-11.30)
[2021-01-20 04:20] LABS: Alanine Aminotransfer (ALT/SGP 14 U/L (12-78); Albumin, Blood 1.2 g/dL (3.4-5.0); Albumin/Globulin Ratio 0.2 (0.8-1.8); Alk Phos 130 U/L (50-136); Anion Gap 4 mmol/L (6-16); Aspartate Aminotrans (AST/SGOT 27 U/L (12-37); Bilirubin, Total 0.3 mg/dL (0.1-1.0); Blood Urea Nitrogen 24 mg/dL (8-24); Bun/Creatinine Ratio 23.1 (12.0-20.0); CO2, Blood 25 mmol/L (21-32); Calcium, Blood 7.8 mg/dL (8.5-10.1); Chloride, Blood 113 mmol/L (98-108); Creatinine, Blood 1.04 mg/dL (0.60-1.20); Globulin, Blood 5.3 g/dL (2.2-4.0); Glomerular Filtration Rate >60 (60-); Glucose, Blood 131 mg/dL (70-99); Magnesium, Blood 1.9 mg/dL (1.6-2.4); Phosphorus, Blood 2.9 mg/dL (2.5-4.9); Potassium, Blood 4.7 mmol/L (3.5-5.5); Sodium, Blood 142 mmol/L (136-145); Total Protein, Blood 6.5 g/dL (6.4-8.2)
--- NOTE | 2021-01-20 06:39 | NUR ---
PT IS A/OX3. MALAYSIAN IS HIS PRIMARY LANGUAGE, UPPER SORBIAN IS SECONDARY. HE IS ABLE TO MAKE HIS NEEDS KNOWN. PLEASANT AND COOPERATIVE WITH STAFF AND HIS CARE. NO EVENTS OVER NIGHT. 1PA WITH GAIT BELT AND FWW TO AMBULATE FROM BED TO BATHROOM. ABD IS DISTENDED. ABD MIDLINE INCISION WITH MILLY. OPEN AREA TO NAVAL. WTD DRSG CHANGED D/T SATURATION THROUGH DRSG AND ABD BINDER. AREA CLEANSED WITH WOUND CLEANSER. WTD GAUZE FLUFF THEN TWO ABD PADS APPLIED. SECURED WITH BRAND NEW ABD BINDER. PT TOLERATED WELL. DENIED PAIN THROUGH OUT THE NIGHT. LUE DOUBLE LUMEN 18G PICC PATENT, IVF AND TPN RUNNING. TOLERATING FL DIET WELL.
--- NOTE | 2021-01-20 09:08 | NUR ---
DRESSING CHANGED TO ABDOMEN AT THIS TIME DUE TO SATURATION OF DRESSING. NIGHT NURSE STATED SHE DID THE DRESSING WELL DURING THE NIGHT FOR SATURATION. PURULENT LOOKING DRAINAGE NOTED, NO ODOR THOUGH. WET TO DRY DRESSING APPLIED WITH ABD PAD AND ABD BINDER. PATIENT REFUSED BREAKFAST THIS AM, SAID HE WAS BLOATED AND FELT FULL. HAS BEEN ASKING FOR ICE MOSTLY. HE SAYS HE HAS NOT APPETITE. PATIENT ALSO STATED HE DID NOT SLEEP WELL LAST NIGHT.
--- NOTE | 2021-01-20 18:10 | NUR ---
Requested update on Amy review yesterday and this am. Still under review per central admissions. This evening I left message for central admissions and also contacted [facility] clinical collection manager. Requesting update on if he will be accepted and where they are at with prior auth. Waiting for return call.
--- NOTE | 2021-01-20 19:30 | NUR ---
PATIENT AAOX4. NO SIGNS OR SYMPTOMS ACUTE DISTRESS NOTED. NO COMPLAINTS OF PAIN OR NAUSEA. DRESSING TO ABDOMEN SATURATED TWO TIMES TODAY. DR ESPOSITO REMOVED ALL REMAINING MILLY, PATIENT TOLERATED WELL. DRESSING CHANGED TWO TIMES TODAY. ABD BINDER IN PLACE. PATIENT WALKED WITH PT TODAY 180 FEET. DID WELL. PATIENT WENT TO XRAY AND CT VIA WHEELCHAIR TODAY. TPN CHANGED TO NIGHTLY INSTEAD OF ALL DAY AND NIGHT LONG. WILL MONITOR.
[2021-01-20 22:22] LABS: C DIFFICILE DNA NEGATIVE (Negative)
[2021-01-21 04:34] LABS: Hematocrit 26.6 % (37.0-53.0); Hemoglobin 8.6 g/dL (13.5-17.5); Mean Corpuscular HGB 29.8 pg (26.0-34.0); Mean Corpuscular HGB Conc 32.3 g/dL (31.5-36.5); Mean Corpuscular Volume 92 fL (80-100); Mean Platelet Volume 9.7 fL (9.1-12.4); Platelet Count 299 K/mm3 (150-400); RDW Coefficient Variation 14.9 % (11.7-14.2); RDW Standard Deviation 50.7 fL (35.1-46.3); Red Blood Cell Count 2.89 M/mm3 (4.30-5.90); White Blood Cell Count 7.32 K/mm3 (4.00-11.30)
[2021-01-21 04:52] LABS: BAND PERCENT MAN 4 % (0-8); BASOPHILS PERCENT MAN 0 % (0-2); EOSINOPHILS ABSOLUTE MAN 0.14 K/mm3 (0.00-0.68); EOSINOPHILS PERCENT MAN 2 % (0-6); LYMPHOCYTES % ATYPICAL MANUAL 1 % (0-0); LYMPHOCYTES ABSOLUTE MAN 0.87 K/mm3 (0.84-5.20); LYMPHOCYTES PERCENT MAN 11 % (21-46); MONOCYTES PERCENT MAN 11 % (4-13); MYELOCYTE ABSOLUTE MAN 0.07 K/mm3 (0.00-0.00); MYELOCYTE PERCENT MAN 1 % (0-0); NEUTROPHILS ABSOLUTE MAN 5.41 K/mm3 (1.96-9.15); SEG NEUTROPHILS PERCENT MAN 70 % (41-73); TOTAL CELLS COUNTED 100
[2021-01-21 04:53] LABS: Anion Gap 3 mmol/L (6-16); Blood Urea Nitrogen 29 mg/dL (8-24); Bun/Creatinine Ratio 28.7 (12.0-20.0); CO2, Blood 25 mmol/L (21-32); Calcium, Blood 7.9 mg/dL (8.5-10.1); Chloride, Blood 113 mmol/L (98-108); Creatinine, Blood 1.01 mg/dL (0.60-1.20); Glomerular Filtration Rate >60 (60-); Glucose, Blood 162 mg/dL (70-99); Potassium, Blood 4.8 mmol/L (3.5-5.5); Sodium, Blood 141 mmol/L (136-145)
--- NOTE | 2021-01-21 06:42 | NUR ---
PT IS A/OX3. ABLE TO MAKE HIS NEEDS KNOWN. PLEASANT AND COOPERATIVE WITH STAFF AND HIS CARE. NO EVENTS OVER NIGHT. TOLERATING FL DIET DURING NOC. HAD TWO BM'S OVER NIGHT, FIRST ONE WAS SMALL AND FORMED SECOND WAS LOOSE. DENIED ANY N/V. PASSING GAS AND BURPING. 1PA WITH GAIT BELT AND FWW W/AMBULATION. LUE 18 GAUGE DOUBLE LUMEN PICC PATENT. MIDLINE INCISION DRSG CDI. ABD BINDER IN PLACE.
--- NOTE | 2021-01-21 17:48 | NUR ---
PATIENT CURRENTLY LYING IN BED WITH NO SIGNS OR SYMPTOMS ACUTE DISTRESS NOTED. CALL LIGHT AND WATER IN EASY REACH. ABLE TO MAKE NEEDS AND WANTS KNOWN. PATIENT WORKE WITH OT TODAY AND WALKED IN THE TRIMBLE, SAT UP IN CHAIR UNTIL HE WENT DOWN FOR CT GUIDED DRAIN PLACEMENT. WHEN PATIENT RETURNED FROM DRAIN PLACEMENT HE WAS VERY TIRED AND WANTED TO LAY IN BED. WOUND VAC PLACED TO UMBILICAL WOUND TODAY, TOLERATED WELL. DRAIN TO RLQ PUT OUT 100ML PURELENT LOOKING DRAINAGE BUT NO ODOR NOTED. WILL CONTINUE TO MONITOR.
[2021-01-22 04:28] LABS: Hematocrit 27.6 % (37.0-53.0); Hemoglobin 8.8 g/dL (13.5-17.5); Mean Corpuscular HGB 29.3 pg (26.0-34.0); Mean Corpuscular HGB Conc 31.9 g/dL (31.5-36.5); Mean Corpuscular Volume 92 fL (80-100); Mean Platelet Volume 9.9 fL (9.1-12.4); Platelet Count 311 K/mm3 (150-400); RDW Coefficient Variation 14.7 % (11.7-14.2); RDW Standard Deviation 49.5 fL (35.1-46.3); White Blood Cell Count 7.63 K/mm3 (4.00-11.30)
[2021-01-22 04:46] LABS: Albumin, Blood 1.9 g/dL (3.4-5.0); Anion Gap 1 mmol/L (6-16); Blood Urea Nitrogen 31 mg/dL (8-24); Bun/Creatinine Ratio 31.7 (12.0-20.0); CO2, Blood 27 mmol/L (21-32); Chloride, Blood 111 mmol/L (98-108); Creatinine, Blood 0.98 mg/dL (0.60-1.20); Glomerular Filtration Rate >60 (60-); Glucose, Blood 138 mg/dL (70-99); Potassium, Blood 4.8 mmol/L (3.5-5.5); Sodium, Blood 139 mmol/L (136-145)
--- NOTE | 2021-01-22 05:52 | NUR ---
PT IS A/OX3. ABLE TO MAKE HIS NEEDS KNOWN. PLEASANT AND COOPERATIVE WITH STAFF AND HIS CARE. NO EVENTS OVERNIGHT. WOUND VAC IN PLACE TO ABD MIDLINE INCISION. WOUND VAC WORKING WELL, NO AIRLEAKS, SET AT 120MMhG INTERMITTENT SUCTION. RLQ URESIL DRAINT PATENT, COMPRESSED, W/PURULENT DRNG. NO ODOR TO DRNG.
[2021-01-22 05:59] LABS: BAND PERCENT MAN 15 % (0-8); BASOPHILS PERCENT MAN 0 % (0-2); EOSINOPHILS ABSOLUTE MAN 0.07 K/mm3 (0.00-0.68); EOSINOPHILS PERCENT MAN 1 % (0-6); LYMPHOCYTES ABSOLUTE MAN 1.29 K/mm3 (0.84-5.20); LYMPHOCYTES PERCENT MAN 17 % (21-46); METAMYELOCYTE ABSOLUTE MAN 0.07 K/mm3 (0.00-0.00); METAMYELOCYTE PERCENT MAN 1 % (0-0); MONOCYTES ABSOLUTE MAN 0.38 K/mm3 (0.16-1.47); MONOCYTES PERCENT MAN 5 % (4-13); MYELOCYTE ABSOLUTE MAN 0.07 K/mm3 (0.00-0.00); MYELOCYTE PERCENT MAN 1 % (0-0); NEUTROPHILS ABSOLUTE MAN 5.72 K/mm3 (1.96-9.15); SEG NEUTROPHILS PERCENT MAN 60 % (41-73); TOTAL CELLS COUNTED 100
--- NOTE | 2021-01-22 16:28 | NUR ---
SHIFT SUMMARY MIDLINE INCISION, WOUND VAC IN PLACE, C/D/I. ABDOMINAL BINDER IN PLACE. ONE ASSIST WITH FWW AND GAIT BELT. VOIDING AND PASSING STOOL. TOLERABLE PAIN REPORTED. TOLERATING PO INTAKE. NO INSULIN NEEDED PER SLIDING SCALE THIS SHIFT. WORKED WELL WITH PHYSICAL AND OCCUPATIONAL THERAPY TODAY. WILL REPORT TO ONCOMING RN.
[2021-01-23 04:34] LABS: Anion Gap 1 mmol/L (6-16); Blood Urea Nitrogen 30 mg/dL (8-24); CO2, Blood 26 mmol/L (21-32); Calcium, Blood 7.8 mg/dL (8.5-10.1); Chloride, Blood 108 mmol/L (98-108); Creatinine, Blood 0.91 mg/dL (0.60-1.20); Glomerular Filtration Rate >60 (60-); Glucose, Blood 156 mg/dL (70-99); Potassium, Blood 4.8 mmol/L (3.5-5.5); Sodium, Blood 135 mmol/L (136-145)
--- NOTE | 2021-01-23 06:00 | NUR ---
PT IS A/OX3. ABLE TO MAKE HIS NEEDS KNOWN. PLEASANT AND COOPERATIVE WITH STAFF AND HIS CARE. NO EVENTS OVER NIGHT. ABD MIDLINE INCISION W/WOUND VAC. WOUND VAC WORKING WELL: NO AIR LEAKS, COMPRESSED, SET AT 120mmHg CONTINOUS SUCTION, SCANT AMT OF DRNG IN CANNISTER- NOT ENOUGH TO MEASURE. ABD BINDER IN PLACE. RLE URESIL DRAIN IN PLACE. SO FAR, TOTAL 85ML PURULENT OUTPUT. LUE 18 GAUGE DOUBLE LUMEN PICC PATENT. DESATS TO HIGH 80'S WHILE SLEEPING; OXYGEN APPLIED AT 2L PER NC. SATS MID-HIGH 90'S W/2L.
[2021-01-24 04:33] LABS: Triglycerides 209 mg/dL (30-160)
--- NOTE | 2021-01-24 06:30 | NUR ---
AAOX4. NO ACUTE DISTRESS NOTED. ABD DRESSING ASSESSED CLEAN AND DRY. CALL LIGHT WITHIN REACH. BED AT LOWER POSTION AND LOCKED. NO VERBALIZED NEEDS AT THIS TIME.
--- NOTE | 2021-01-25 00:57 | NUR ---
PATIENT HAS VOMIT TWICE TOTAL OF 200 ML AT 1900 AND 2300. GREENISH COLOR. NO PAIN AT THS TIME. MD WAS NOTIFIED AND WAITING FALL CALL BACK
--- NOTE | 2021-01-25 01:00 | NUR ---
AT 0005 PATIENT HAD A MODERATE AMOUNT OF BLOOD IN STOOL. MD WAS CALLED AND WAITING FOR CALL BACK.
--- NOTE | 2021-01-25 01:12 | NUR ---
PATIENT VOMITTED TWICE AT 1900,2300. ALSO HAD MODERATE BLOODY STOOL AT 0100. MD WAS NOTIFIED AND ORDERED AM LABS AND MONITORING.
[2021-01-25 03:37] LABS: BASOPHILS ABSOLUTE AUTO 0.04 K/mm3 (0.00-0.23); BASOPHILS PERCENT AUTO 1 % (0-2); EOSINOPHILS ABSOLUTE AUTO 0.07 K/mm3 (0.00-0.68); EOSINOPHILS PERCENT AUTO 1 % (0-6); Hematocrit 25.7 % (37.0-53.0); Hemoglobin 8.5 g/dL (13.5-17.5); IMMATURE GRAN ABSOLUTE AUTO 0.15 K/mm3 (0.00-0.10); IMMATURE GRAN PERCENT AUTO 2 % (0-1); LYMPHOCYTES ABSOLUTE AUTO 1.53 K/mm3 (0.84-5.20); LYMPHOCYTES PERCENT AUTO 17 % (21-46); MONOCYTES ABSOLUTE AUTO 0.81 K/mm3 (0.16-1.47); MONOCYTES PERCENT AUTO 9 % (4-13); Mean Corpuscular HGB 29.8 pg (26.0-34.0); Mean Corpuscular HGB Conc 33.1 g/dL (31.5-36.5); Mean Corpuscular Volume 90 fL (80-100); Mean Platelet Volume 9.6 fL (9.1-12.4); NEUTROPHILS ABSOLUTE AUTO 6.19 K/mm3 (1.96-9.15); NEUTROPHILS PERCENT AUTO 70 % (41-73); Platelet Count 354 K/mm3 (150-400); RDW Coefficient Variation 14.7 % (11.7-14.2); RDW Standard Deviation 48.2 fL (35.1-46.3); Red Blood Cell Count 2.85 M/mm3 (4.30-5.90); White Blood Cell Count 8.79 K/mm3 (4.00-11.30)
[2021-01-25 03:50] LABS: Anion Gap 2 mmol/L (6-16); Blood Urea Nitrogen 29 mg/dL (8-24); Bun/Creatinine Ratio 36.1 (12.0-20.0); CO2, Blood 26 mmol/L (21-32); Chloride, Blood 107 mmol/L (98-108); Glomerular Filtration Rate >60 (60-); Glucose, Blood 140 mg/dL (70-99); Potassium, Blood 4.6 mmol/L (3.5-5.5); Sodium, Blood 135 mmol/L (136-145)
--- NOTE | 2021-01-25 12:51 | NUR ---
PATIENT HAS BEEN RESTING MOST OF THE MORNING HE STATES HE IS VERY TIRED. PATIENT IS CURRENTLY UP IN CHAIR. NO SIGNS OR SYMPTOMS ACUTE DISTRESS NOTED. NO COMPLAINTS OF NAUSEA OR PAIN AT THIS TIME. CALL LIGHT AND WATER IN EASY REACH AND ABLE TO MAKE NEEDS AND WANTS KNOWN. BM TODAY-NOTED TO BE WANT SEEMS LIKE OLD DARK BLOOD AND BROWN STOOL. PATIENT ATE HALF HIS LUNCH TODAY WELL. WILL CONTINUE TO MONITOR.
--- NOTE | 2021-01-25 18:17 | NUR ---
PATIENT HAD A GOOD DAY TODAY. AAOX4. ABLE TO MAKE NEEDS AND WANTS KNOWN. WOUND VAC IN PLACE TO MIDLINE ABD, FUNCTIONING PROPERLY. URECEL DRAIN TO RLQ FUNCTIONING PROPERLY WELL. PATIENT UP IN CHAIR TODAY FOR A WHILE, DAUGHTER VISITED. PATIENT HAD A FEW BOWEL MOVEMENTS, LOOSE WATERMAN/ORANGE IN COLOR. CALL LIGHT AND WATER IN EASY REACH. ATE GOOD LUNCH BUT REFUSED BREAKFAST AND DINNER. ENCOURAGED TO EAT. WILL MONITOR.
--- NOTE | 2021-01-26 09:31 | NUR ---
PATIENT CURRENTLY LYING IN BED WITH EYES CLOSED. PATIENT DID NOT EAT BREAKFAST THIS AM-HE REFUSED. HE DID NOT WANT TO GET UP EITHER. PATIENT SAYS HE WILL GET UP FOR LUNCH FOR SURE. NO SIGNS OR SYMPTOMS ACUTE DISTRESS NOTED AT THIS TIME. CALL LIGHT AND WATER IN EASY REACH. ABLE TO MAKE NEED AND WANTS KNOWN. WILL MONIOTR. WOUND VAC TO ABDOMEN INTACT, DRAIN TO RLQ INTACT .
--- NOTE | 2021-01-26 17:50 | NUR ---
PATIENT CURRENTLY LYING IN BED WITH NO SIGNS OR SYMPTOMS ACUTE DISTRESS NOTED. NO COMPLAINTS AT THIS TIME. CALL LIGHT AND WATER IN EASY REACH. ABLE TO MAKE NEEDS AND WANTS. CURRENTLY EATING DINNER. TOLERATING FAIR. WOUND VAC CHANGED AND PATIENT TOLERATED WELL. GRANULATION TISSUE NOTED TO WOUND BASE. NO SIGNS OR INFECTION NOTED.
[2021-01-27 04:34] LABS: Hematocrit 25.2 % (37.0-53.0); Hemoglobin 8.3 g/dL (13.5-17.5); Mean Corpuscular HGB 28.9 pg (26.0-34.0); Mean Corpuscular HGB Conc 32.9 g/dL (31.5-36.5); Mean Corpuscular Volume 88 fL (80-100); Mean Platelet Volume 9.4 fL (9.1-12.4); Platelet Count 416 K/mm3 (150-400); RDW Coefficient Variation 14.7 % (11.7-14.2); RDW Standard Deviation 46.8 fL (35.1-46.3); Red Blood Cell Count 2.87 M/mm3 (4.30-5.90); White Blood Cell Count 10.46 K/mm3 (4.00-11.30)
[2021-01-27 05:46] LABS: BAND PERCENT MAN 4 % (0-8); BASOPHILS PERCENT MAN 1 % (0-2); EOSINOPHILS PERCENT MAN 2 % (0-6); LYMPHOCYTES ABSOLUTE MAN 1.35 K/mm3 (0.84-5.20); LYMPHOCYTES PERCENT MAN 13 % (21-46); MONOCYTES ABSOLUTE MAN 0.52 K/mm3 (0.16-1.47); MONOCYTES PERCENT MAN 5 % (4-13); NEUTROPHILS ABSOLUTE MAN 8.26 K/mm3 (1.96-9.15); SEG NEUTROPHILS PERCENT MAN 75 % (41-73); TOTAL CELLS COUNTED 100
--- NOTE | 2021-01-27 06:10 | NUR ---
PT IS A/OX3. ABLE TO MAKE HIS NEEDS KNOWN. NO EVENTS OVER NIGHT. ABD MIDLINE INCISION WITH WOUND VAC. WOUND VAC CHANGED YESTERDAY, WORKING WELL AT 120MMHG CONTINTOUS SUCTION, NO DRNG IN CANNISTER. RLQ URESIL DRAIN INTACT, PURULENT DRNG, INSERTION SITE CDI. LUE PICC PATENT, DRSG CDI. NO N/V OR LOOSE STOOLS OVER NIGHT.
--- NOTE | 2021-01-27 07:43 | NUR ---
REPORT RECIEVED FROM MONICA BARAHONA THIS MORNING. ASSUMED CARE OF PATIENT. PATIENT LYING IN BED WITH NO SIGNS OR SYMPTOMS ACUTE DISTRESS NOTED. CALL LIGHT AND WATER IN EASY REACH. ABLE TO MAKE NEEDS AND WANTS KNOWN. PATIENT WITH LOW GRADE FEVER THIS AM, WILL MEDICATE WITH TYLENOL. PATIENT SAYS HE FEEL GOOD THIS MORNING. AAO X 4. WOUND VAC IN PLACE AND FUNCTIONING PROPERLY. DRAIN TO RLQ WITH LIGHT WATERMAN COLOR DRAINAGE NOTED. WILL MONITOR
[2021-01-27 08:48] LABS: Alanine Aminotransfer (ALT/SGP 13 U/L (12-78); Albumin, Blood 1.6 g/dL (3.4-5.0); Albumin/Globulin Ratio 0.3 (0.8-1.8); Alk Phos 104 U/L (50-136); Anion Gap 4 mmol/L (6-16); Aspartate Aminotrans (AST/SGOT 17 U/L (12-37); Bilirubin, Total 0.1 mg/dL (0.1-1.0); Blood Urea Nitrogen 21 mg/dL (8-24); Bun/Creatinine Ratio 30.3 (12.0-20.0); CO2, Blood 27 mmol/L (21-32); Calcium, Blood 8.2 mg/dL (8.5-10.1); Chloride, Blood 102 mmol/L (98-108); Creatinine, Blood 0.69 mg/dL (0.60-1.20); Glomerular Filtration Rate >60 (60-); Glucose, Blood 146 mg/dL (70-99); Magnesium, Blood 1.7 mg/dL (1.6-2.4); Phosphorus, Blood 3.5 mg/dL (2.5-4.9); Potassium, Blood 4.7 mmol/L (3.5-5.5); Sodium, Blood 133 mmol/L (136-145); Total Protein, Blood 6.6 g/dL (6.4-8.2)
--- NOTE | 2021-01-27 18:13 | NUR ---
PATIENT HAD A GOOD DAY TODAY. HE WALKED WITH THERAPY TODAY AND DID WELL. HE DID HAVE A LOW GRADE FEVER THIS AM, MEDICATED WITH TYLENOL AND EFFECTIVE IN LOWERING FEVER. PATIENT ATE WELL FOR LUNCH AND DINNER TODAY. BLOOD CULTURES DRAWN AND IV ANTIBIOTICS STARTED. NO SIGNS OR SYMPTOMS ACUTE DISTRESS NOTED. CALL LIGHT AND WATER IN EASY REACH. BM TODAY-FORMED. PATIENT ABLE TO MAKE NEEDS AND WANTS KNOWN. WILL MONITOR.
--- NOTE | 2021-01-28 05:40 | NUR ---
PT IS A/OX3. ABLE TO MAKE HIS NEEDS KNOWN. IN GOOD SPIRITS. NO EVENTS OVER NIGHT. SLEPT WELL MOST OF THE NIGHT. ABD MIDLINE INCISION HEALED. WOUND VAC IN PLACE TO UMBILICAL WOUND. WOUND VAC WORKING WELL- NO AIR LEAKS, COMPRESSED, SET AT 120MMHG CONTINOUS SUCTION, NO DRNG IN CANNISTER. RLQ URESIL DRAIN INACT- INSERTION SITE CDI, COMPRESSED W/PURULENT DRNG. NO ODOR TO EXUDATE. SBA W/TRANSFERS AND AMBULATION.
--- NOTE | 2021-01-28 18:12 | NUR ---
PATIENT HAD A GOOD DAY TODAY. HIS APPETITE IS MUCH BETTER TODAY. NO COMPLAINTS OF PAIN VOICED. NO COMPLAINTS OF NAUSEA VOICED. PATIENT WORKED WITH PT TODAY AND DID VERY WELL, HE WORKED ON STAIRS TODAY AND DID WELL. NO SIGNS OR SYMPTOMS ACUTE DISTRESS NOTED AT THIS TIME. CALL LIGHT AND WATER IN EASY REACH. WOUND VAC CHANGED AND PICUTRES WERE TAKEN-SEE CHART. PATIENT TOLERATED WELL. WOUND IS HEALING GREAT. MEASURES 4CM X 1.5CM X 1.5CM. UPDATED DR ESPOSITO OR WOUND APPEARANCE. PICC LINE REMOVED TODAY, PIV PLACED. CLINIMIX/LIPIDS WERE ALSO DISCONTINUED TODAY. WILL MONITOR.
[2021-01-29 09:15] LABS: Hematocrit 27.2 % (37.0-53.0); Mean Corpuscular HGB 28.9 pg (26.0-34.0); Mean Corpuscular HGB Conc 33.1 g/dL (31.5-36.5); Mean Corpuscular Volume 88 fL (80-100); Mean Platelet Volume 9.4 fL (9.1-12.4); Platelet Count 421 K/mm3 (150-400); RDW Coefficient Variation 14.7 % (11.7-14.2); RDW Standard Deviation 46.9 fL (35.1-46.3); Red Blood Cell Count 3.11 M/mm3 (4.30-5.90); White Blood Cell Count 12.79 K/mm3 (4.00-11.30)
[2021-01-29 09:39] LABS: BASOPHILS PERCENT MAN 0 % (0-2); EOSINOPHILS ABSOLUTE MAN 0.25 K/mm3 (0.00-0.68); EOSINOPHILS PERCENT MAN 2 % (0-6); LYMPHOCYTES ABSOLUTE MAN 1.66 K/mm3 (0.84-5.20); LYMPHOCYTES PERCENT MAN 13 % (21-46); MONOCYTES ABSOLUTE MAN 0.25 K/mm3 (0.16-1.47); MONOCYTES PERCENT MAN 2 % (4-13); MYELOCYTE ABSOLUTE MAN 0.12 K/mm3 (0.00-0.00); MYELOCYTE PERCENT MAN 1 % (0-0); NEUTROPHILS ABSOLUTE MAN 10.48 K/mm3 (1.96-9.15); SEG NEUTROPHILS PERCENT MAN 82 % (41-73); TOTAL CELLS COUNTED 100
[2021-01-29 09:45] LABS: Alanine Aminotransfer (ALT/SGP 13 U/L (12-78); Albumin, Blood 1.6 g/dL (3.4-5.0); Albumin/Globulin Ratio 0.3 (0.8-1.8); Alk Phos 143 U/L (50-136); Anion Gap 7 mmol/L (6-16); Aspartate Aminotrans (AST/SGOT 24 U/L (12-37); Bilirubin, Total 0.2 mg/dL (0.1-1.0); Blood Urea Nitrogen 14 mg/dL (8-24); Bun/Creatinine Ratio 21.2 (12.0-20.0); CO2, Blood 25 mmol/L (21-32); Calcium, Blood 7.7 mg/dL (8.5-10.1); Chloride, Blood 98 mmol/L (98-108); Creatinine, Blood 0.66 mg/dL (0.60-1.20); Globulin, Blood 5.6 g/dL (2.2-4.0); Glomerular Filtration Rate >60 (60-); Glucose, Blood 149 mg/dL (70-99); Magnesium, Blood 1.5 mg/dL (1.6-2.4); Potassium, Blood 3.8 mmol/L (3.5-5.5); Sodium, Blood 130 mmol/L (136-145); Total Protein, Blood 7.2 g/dL (6.4-8.2)
--- NOTE | 2021-01-29 18:51 | NUR ---
SUMMARY: NO ACUTE CHANGE TODAY. A/O. PT HAS DENIED PAIN, N/V, YURI REG DIET. WOUND VAC/SURGICAL SITES WNL. MINIMAL OUTPUT FROM URESIL DRAIN, NOT EMPTIED THIS SHIFT. TEMP 100.7 TONIGHT OTHERWISE VSS. IV MAG SULFATE INFUSED SLOWLY AND DILUTED WITH NORMAL SALINE DUE TO REPORTED PAIN AT SITE, BAG NOW INFUSED AND IV HAS FLUSHED WELL THOUGHOUT TODAY, NO SIGNS OF INFILTRATION. PT WORKED WITH THERAPY, SEE NOTES. RECOMMENDING HOME WITH HH. PT IS MOVING VERY WELL. NO ACUTE SAFETY CONCERNS, PLAN IS FOR POSSIBLE DC TOMORROW.
[2021-01-30 04:29] LABS: Hematocrit 26.2 % (37.0-53.0); Hemoglobin 8.7 g/dL (13.5-17.5); Mean Corpuscular HGB 29.1 pg (26.0-34.0); Mean Corpuscular HGB Conc 33.2 g/dL (31.5-36.5); Mean Corpuscular Volume 88 fL (80-100); Mean Platelet Volume 9.3 fL (9.1-12.4); Platelet Count 431 K/mm3 (150-400); RDW Coefficient Variation 14.6 % (11.7-14.2); Red Blood Cell Count 2.99 M/mm3 (4.30-5.90); White Blood Cell Count 11.88 K/mm3 (4.00-11.30)
[2021-01-30 04:46] LABS: Anion Gap 4 mmol/L (6-16); Blood Urea Nitrogen 12 mg/dL (8-24); Bun/Creatinine Ratio 17.6 (12.0-20.0); CO2, Blood 28 mmol/L (21-32); Calcium, Blood 7.9 mg/dL (8.5-10.1); Chloride, Blood 99 mmol/L (98-108); Creatinine, Blood 0.68 mg/dL (0.60-1.20); Glomerular Filtration Rate >60 (60-); Glucose, Blood 108 mg/dL (70-99); Potassium, Blood 4.1 mmol/L (3.5-5.5); Sodium, Blood 131 mmol/L (136-145)
[2021-01-30 06:17] LABS: BAND PERCENT MAN 8 % (0-8); BASOPHILS PERCENT MAN 0 % (0-2); EOSINOPHILS PERCENT MAN 0 % (0-6); LYMPHOCYTES ABSOLUTE MAN 0.95 K/mm3 (0.84-5.20); LYMPHOCYTES PERCENT MAN 8 % (21-46); MONOCYTES ABSOLUTE MAN 0.83 K/mm3 (0.16-1.47); MONOCYTES PERCENT MAN 7 % (4-13); NEUTROPHILS ABSOLUTE MAN 10.09 K/mm3 (1.96-9.15); SEG NEUTROPHILS PERCENT MAN 77 % (41-73); TOTAL CELLS COUNTED 100
--- NOTE | 2021-01-30 06:27 | NUR ---
PT IS A/OX3. ABLE TO MAKE HIS NEEDS KNOWN. NO EVENTS OVER NIGHT. SLEPT WELL. MIDLINE INCISION HEALED. UMBILICUS WOUND W/WOUND VAC. WOUND VAC WORKING WELL- NO AIR LEAKS, COMPRESSED AND SET AT 120MMHG CONTINOUS SUCTION. NO DRNG IN CANNISTER. PLUGGED IN. RLQ URESIL DRAIN INTACT, INSERTION SITE CDI, DRAIN COMPRESSED AND PINNED TO GOWN. PURULENT/FATTY DRNG NOTED IN DRAIN POUCH. PENDING ABD CT SCAN THIS AM. POSSIBLE D/C HOME TODAY.
--- NOTE | 2021-01-30 17:54 | NUR ---
PT YURI REGULAR DIET WITHOUT NAUSEA. 60 MIL CLOUDY YELLOW DRAINAGE PER UROSIL PT HAS DENIED NEED FOR PAIN MEDS. TOLERATED SHAVING AND SHOWERING. STANDBY ASSIST WITH WALKER IN ROOM
--- NOTE | 2021-01-31 08:13 | NUR ---
ROUNDING: IN TO SEE PATIENT THIS AM. BLOOD WORK PENDING. CHANGES TO MEDICATION PER DOCTOR REQUEST. ENCOURAGED PT TO AMBULATE AND DRINK FLUIDS. WILL CONT TO MONITOR.
[2021-01-31 08:16] LABS: BASOPHILS ABSOLUTE AUTO 0.04 K/mm3 (0.00-0.23); BASOPHILS PERCENT AUTO 0 % (0-2); EOSINOPHILS PERCENT AUTO 0 % (0-6); IMMATURE GRAN ABSOLUTE AUTO 0.12 K/mm3 (0.00-0.10); IMMATURE GRAN PERCENT AUTO 1 % (0-1); LYMPHOCYTES ABSOLUTE AUTO 2.16 K/mm3 (0.84-5.20); LYMPHOCYTES PERCENT AUTO 19 % (21-46); MONOCYTES ABSOLUTE AUTO 0.69 K/mm3 (0.16-1.47); MONOCYTES PERCENT AUTO 6 % (4-13); Mean Corpuscular HGB Conc 33.3 g/dL (31.5-36.5); Mean Corpuscular Volume 87 fL (80-100); NEUTROPHILS ABSOLUTE AUTO 8.52 K/mm3 (1.96-9.15); NEUTROPHILS PERCENT AUTO 74 % (41-73); Platelet Count 392 K/mm3 (150-400); RDW Coefficient Variation 14.6 % (11.7-14.2); RDW Standard Deviation 46.1 fL (35.1-46.3); White Blood Cell Count 11.53 K/mm3 (4.00-11.30)
[2021-01-31 08:57] LABS: Albumin, Blood 1.6 g/dL (3.4-5.0); Anion Gap 4 mmol/L (6-16); Blood Urea Nitrogen 10 mg/dL (8-24); Bun/Creatinine Ratio 14.3 (12.0-20.0); CO2, Blood 28 mmol/L (21-32); Calcium, Blood 7.9 mg/dL (8.5-10.1); Chloride, Blood 98 mmol/L (98-108); Glomerular Filtration Rate >60 (60-); Glucose, Blood 106 mg/dL (70-99); Magnesium, Blood 1.8 mg/dL (1.6-2.4); Phosphorus, Blood 3.1 mg/dL (2.5-4.9); Potassium, Blood 4.1 mmol/L (3.5-5.5); Sodium, Blood 130 mmol/L (136-145)
--- NOTE | 2021-01-31 18:07 | NUR ---
PT STABLE THIS SHIFT. VSS. PT HAS HAD SOME LOW GRADE FEVERS. UROCIL DRAIN DC'D. PT TOLERATING DIET WELL. BLOOD SUGARS STABLE, NO COVERAGE NEEDED. PT AMBULATING IN THE HALLWAY INDEP WITH 4 WHEEL WALKER. PT PASSING FLATUS AND LOOSE STOOLS. PT VOIDING WELL. ENCOURAGING HYDRATION. ATTENDS ON FOR OCCASIONAL LEAKAGE. DC IMMODIUM AND BENETROL TODAY. REPEAT LABS IN THE AM. POSSIBLE DC TO HOME TOMORROW.
--- NOTE | 2021-02-01 07:42 | NUR ---
SHIFT SUMMARY PT REMAINS A/O X4, VSS c MILD ELEVATED TEMP, UP TO BATHROOM TO VOID, DRESSING CHANGED TO UMBILICUS THIS SHIFT, PT EDUCATED ON WOUND CARE. NO ACUTE EVENTS THIS SHIFT. REPORT GIVEN TO DAY RN.
[2021-02-01 07:49] LABS: BASOPHILS ABSOLUTE AUTO 0.03 K/mm3 (0.00-0.23); BASOPHILS PERCENT AUTO 0 % (0-2); EOSINOPHILS PERCENT AUTO 0 % (0-6); Hematocrit 25.1 % (37.0-53.0); Hemoglobin 8.3 g/dL (13.5-17.5); IMMATURE GRAN ABSOLUTE AUTO 0.07 K/mm3 (0.00-0.10); IMMATURE GRAN PERCENT AUTO 1 % (0-1); LYMPHOCYTES PERCENT AUTO 20 % (21-46); MONOCYTES ABSOLUTE AUTO 0.67 K/mm3 (0.16-1.47); MONOCYTES PERCENT AUTO 6 % (4-13); Mean Corpuscular HGB 28.8 pg (26.0-34.0); Mean Corpuscular HGB Conc 33.1 g/dL (31.5-36.5); Mean Corpuscular Volume 87 fL (80-100); NEUTROPHILS ABSOLUTE AUTO 7.74 K/mm3 (1.96-9.15); NEUTROPHILS PERCENT AUTO 73 % (41-73); Platelet Count 378 K/mm3 (150-400); RDW Coefficient Variation 14.6 % (11.7-14.2); RDW Standard Deviation 46.1 fL (35.1-46.3); Red Blood Cell Count 2.88 M/mm3 (4.30-5.90); White Blood Cell Count 10.61 K/mm3 (4.00-11.30)
[2021-02-01 07:58] LABS: Albumin, Blood 1.5 g/dL (3.4-5.0); Anion Gap 4 mmol/L (6-16); Blood Urea Nitrogen 8 mg/dL (8-24); Bun/Creatinine Ratio 12.4 (12.0-20.0); CO2, Blood 30 mmol/L (21-32); Calcium, Blood 7.8 mg/dL (8.5-10.1); Chloride, Blood 98 mmol/L (98-108); Creatinine, Blood 0.64 mg/dL (0.60-1.20); Glomerular Filtration Rate >60 (60-); Glucose, Blood 112 mg/dL (70-99); Magnesium, Blood 1.7 mg/dL (1.6-2.4); Phosphorus, Blood 2.9 mg/dL (2.5-4.9); Potassium, Blood 4.1 mmol/L (3.5-5.5); Sodium, Blood 132 mmol/L (136-145)
[2021-02-01] MEDS ORDERED: ACET325 PO (14:41)
[2021-02-01] MEDS ORDERED: POLY500 PO (14:42)
[2021-02-01] MEDS ORDERED: VISBIOME 112.51 EACH PO (14:42)
--- NOTE | 2021-02-01 15:56 | NUR ---
DISCHARGE PT TOLERATING PO. IND AMBULATION IN ROOM AND HALLWAYS. PT REPORTS INCREASED STRENGTH. PASSING FLATUS, BM'S STILL LOOSE. INSTRUCTIONS AND WOUND CARE INSTRUCTIONS GONE OVER WITH PATIENT AND HIS DAUGHTER, EXTRA DRESSSINGS SENT WITH PATIENT. IV REMOVED PRIOR TO DISCHARGE. SCRIPT FOR FOUR WHEEL WALKER SENT WITH PATIENT.
== END 2021-02-01 15:36 | disposition home health service (06) | DRG 853 ==
LOC: ER 11:46 → SURS 11:47 → ICUE 22:16 → SURS 22:16 → PCU 01-03 15:25 → SURS 01-04 11:12 → ICUE 01-08 13:57 → SURS 01-12 17:42
PROVIDERS: Emergency Medicine; Family Medicine; Hospitalist; Internal Medicine; Internal Medicine Critical Care Medicine; Pharmacist; Student in an Organized Health Care Education/Training Program; ADMIT Surgery
PROC: 0DTF0ZZ Resection of Right Large Intestine, Open Approach (ICD-10-PCS; principal; 2021-01-03 13:00)
PROC: 0WJP4ZZ Inspection of Gastrointestinal Tract, Percutaneous Endoscopic Approach (ICD-10-PCS; 2021-01-03 13:00)
PROC: 3E0G76Z Introduction of Nutritional Substance into Upper GI, Via Natural or Artificial Opening (ICD-10-PCS; 2021-01-09)
PROC: 0W9G30Z Drainage of Peritoneal Cavity with Drainage Device, Percutaneous Approach (ICD-10-PCS; 2021-01-21)
DX: A41.51 Sepsis due to Escherichia coli [E. coli] (principal); K35.33 Acute appendicitis with perforation, localized peritonitis, and gangrene, with abscess; E87.2 Acidosis; N17.9 Acute kidney failure, unspecified; E87.0 Hyperosmolality and hypernatremia; K56.7 Ileus, unspecified; E87.1 Hypo-osmolality and hyponatremia; Z20.822 Contact with and (suspected) exposure to COVID-19; E87.70 Fluid overload, unspecified; E11.65 Type 2 diabetes mellitus with hyperglycemia; R65.20 Severe sepsis without septic shock; E78.5 Hyperlipidemia, unspecified; E66.01 Morbid (severe) obesity due to excess calories; Z28.21 Immunization not carried out because of patient refusal; Z68.29 Body mass index [BMI] 29.0-29.9, adult; Z98.890 Other specified postprocedural states; Z72.89 Other problems related to lifestyle; Z79.899 Other long term (current) drug therapy; Z86.73 Personal history of transient ischemic attack (TIA), and cerebral infarction without residual deficits
CPT/HCPCS: 36415; 36569; 36600; 49405; 51702; 71045; 74018; 74019; 74176; 74177; 80048; 80053; 80069; 80202; 81001; 82040; 82570; 82803; 82947; 83036; 83605; 83690; 83735; 84100; 84145; 84300; 84478; 85007; 85014; 85018; 85025; 85027; 85384; 85610; 87040; 87070; 87075; 87077; 87086; 87102; 87147; 87186; 87205; 87493; 88307; 93005; 93010; 94762; 96361; 96365; 96365-59; 96375; 97110; 97112; 97116; 97162; 97166; 97530; 97535; 99285-25; A9270; C1751; C9113; G0378; J0360; J0610; J1100; J1170; J1450; J1650; J1815; J1940; J1956; J2250; J2370; J2405; J2543; J2550; J2704; J2710; J3010; J3370; J3411; J3475; J7030; J7040; J7042; J7050; J7060; J7070; J7120; P9046; Q9967; U0004

== ENCOUNTER 2021-02-16 03:40 | Day surgery (SDC) | payer OTHER ==
[~2021-02-16 03:40] MED LIST changes: +AMLO5 PO; +ATEN100 PO; +ATOR20 PO; +POLY500 PO; +VISBIOME 112.51 EACH PO
== END 2021-02-16 23:08 | disposition home or self-care (01) ==
LOC: WOUND 03:40
DX: T81.31XA Disruption of external operation (surgical) wound, not elsewhere classified, initial encounter (principal); S31.101A Unspecified open wound of abdominal wall, left upper quadrant without penetration into peritoneal cavity, initial encounter; X58.XXXA Exposure to other specified factors, initial encounter; E11.9 Type 2 diabetes mellitus without complications
CPT/HCPCS: A9270

== ENCOUNTER 2021-02-23 03:54 | Day surgery (SDC) | payer OTHER | END 2021-02-23 22:56 | disposition home or self-care (01) | LOC: WOUND 03:54 | DX: T81.31XA Disruption of external operation (surgical) wound, not elsewhere classified, initial encounter (principal); S31.101A Unspecified open wound of abdominal wall, left upper quadrant without penetration into peritoneal cavity, initial encounter; X58.XXXA Exposure to other specified factors, initial encounter; E11.9 Type 2 diabetes mellitus without complications | CPT/HCPCS: A9270; G0463 ==

== ENCOUNTER 2021-02-26 13:53 | Emergency (ER) | payer OTHER ==
[~2021-02-26] VITALS: Ht 170.2 cm; Wt 96.6 kg
[2021-02-26 14:24] LABS: Hematocrit 24.2 % (37.0-53.0); Hemoglobin 7.8 g/dL (13.5-17.5); Mean Corpuscular HGB 28.6 pg (26.0-34.0); Mean Corpuscular HGB Conc 32.2 g/dL (31.5-36.5); Mean Corpuscular Volume 89 fL (80-100); Mean Platelet Volume 8.8 fL (9.1-12.4); Platelet Count 506 K/mm3 (150-400); RDW Coefficient Variation 15.2 % (11.7-14.2); RDW Standard Deviation 49.4 fL (35.1-46.3); Red Blood Cell Count 2.73 M/mm3 (4.30-5.90); White Blood Cell Count 13.02 K/mm3 (4.00-11.30)
[2021-02-26 15:45] LABS: BASOPHILS PERCENT MAN 0 % (0-2); EOSINOPHILS PERCENT MAN 0 % (0-6); LYMPHOCYTES ABSOLUTE MAN 4.03 K/mm3 (0.84-5.20); LYMPHOCYTES PERCENT MAN 31 % (21-46); MONOCYTES ABSOLUTE MAN 0.78 K/mm3 (0.16-1.47); MONOCYTES PERCENT MAN 6 % (4-13); SEG NEUTROPHILS PERCENT MAN 63 % (41-73); TOTAL CELLS COUNTED 100
[2021-02-26 16:25] LABS: Alanine Aminotransfer (ALT/SGP 18 U/L (12-78); Albumin, Blood 2.2 g/dL (3.4-5.0); Albumin/Globulin Ratio 0.3 (0.8-1.8); Alk Phos 116 U/L (50-136); Anion Gap 9 mmol/L (6-16); Aspartate Aminotrans (AST/SGOT 19 U/L (12-37); Bilirubin, Total 0.3 mg/dL (0.1-1.0); Blood Urea Nitrogen 11 mg/dL (8-24); Bun/Creatinine Ratio 15.2 (12.0-20.0); CO2, Blood 24 mmol/L (21-32); Calcium, Blood 8.9 mg/dL (8.5-10.1); Chloride, Blood 101 mmol/L (98-108); Creatinine, Blood 0.73 mg/dL (0.60-1.20); Globulin, Blood 6.3 g/dL (2.2-4.0); Glomerular Filtration Rate >60 (60-); Glucose, Blood 122 mg/dL (70-99); Potassium, Blood 4.2 mmol/L (3.5-5.5); Sodium, Blood 134 mmol/L (136-145); Total Protein, Blood 8.5 g/dL (6.4-8.2)
== END 2021-02-26 17:56 | disposition home or self-care (01) ==
LOC: ER 13:53
PROVIDERS: Physician Assistant
DX: K65.9 Peritonitis, unspecified (principal); G89.18 Other acute postprocedural pain; D64.9 Anemia, unspecified; D72.829 Elevated white blood cell count, unspecified; Z79.899 Other long term (current) drug therapy
CPT/HCPCS: 36415; 74177; 80053; 83690; 85025; 99284-25; J7120; Q9967

== ENCOUNTER 2021-03-02 04:17 | Day surgery (SDC) | payer OTHER | END 2021-03-02 12:00 | disposition home or self-care (01) | LOC: WOUND 04:17 | DX: S31.101A Unspecified open wound of abdominal wall, left upper quadrant without penetration into peritoneal cavity, initial encounter (principal); X58.XXXA Exposure to other specified factors, initial encounter; E11.9 Type 2 diabetes mellitus without complications | CPT/HCPCS: A9270; G0463 ==

== ENCOUNTER 2021-03-17 05:20 | Day surgery (SDC) | payer OTHER | END 2021-03-17 12:00 | disposition home or self-care (01) | LOC: WOUND 05:20 | DX: S31.101A Unspecified open wound of abdominal wall, left upper quadrant without penetration into peritoneal cavity, initial encounter (principal); X58.XXXA Exposure to other specified factors, initial encounter; E11.9 Type 2 diabetes mellitus without complications | CPT/HCPCS: G0463 ==

== ENCOUNTER 2021-06-02 13:06 | Inpatient (IN) | payer OTHER ==
[~2021-06-02] VITALS: Ht 170.2 cm; Wt 77.0 kg
[~2021-06-02 13:06] MED LIST changes: +FERSU300 PO; +JARDIANCE10 MG PO; +METO5A PO; +PANT40 PO
[2021-06-02 13:49] LABS: BASOPHILS ABSOLUTE AUTO 0.02 K/mm3 (0.00-0.23); BASOPHILS PERCENT AUTO 0 % (0-2); EOSINOPHILS ABSOLUTE AUTO 0.03 K/mm3 (0.00-0.68); EOSINOPHILS PERCENT AUTO 0 % (0-6); Hematocrit 35.2 % (37.0-53.0); Hemoglobin 11.6 g/dL (13.5-17.5); IMMATURE GRAN ABSOLUTE AUTO 0.02 K/mm3 (0.00-0.10); IMMATURE GRAN PERCENT AUTO 0 % (0-1); LYMPHOCYTES ABSOLUTE AUTO 4.34 K/mm3 (0.84-5.20); LYMPHOCYTES PERCENT AUTO 48 % (21-46); MONOCYTES ABSOLUTE AUTO 0.67 K/mm3 (0.16-1.47); MONOCYTES PERCENT AUTO 7 % (4-13); Mean Corpuscular HGB 27.8 pg (26.0-34.0); Mean Corpuscular Volume 84 fL (80-100); Mean Platelet Volume 9.8 fL (9.1-12.4); NEUTROPHILS ABSOLUTE AUTO 4.01 K/mm3 (1.96-9.15); NEUTROPHILS PERCENT AUTO 44 % (41-73); Platelet Count 278 K/mm3 (150-400); RDW Coefficient Variation 15.1 % (11.7-14.2); RDW Standard Deviation 46.1 fL (35.1-46.3); Red Blood Cell Count 4.17 M/mm3 (4.30-5.90); White Blood Cell Count 9.09 K/mm3 (4.00-11.30)
[2021-06-02 14:12] LABS: Albumin, Blood 3.3 g/dL (3.4-5.0); Albumin/Globulin Ratio 0.7 (0.8-1.8); Bilirubin, Total 0.3 mg/dL (0.1-1.0); Bun/Creatinine Ratio 19.4 (12.0-20.0); Calcium, Blood 8.5 mg/dL (8.5-10.1); Creatinine, Blood 1.39 mg/dL (0.60-1.20); Globulin, Blood 4.6 g/dL (2.2-4.0); Potassium, Blood 3.8 mmol/L (3.5-5.5); Total Protein, Blood 7.9 g/dL (6.4-8.2)
--- NOTE | 2021-06-03 04:48 | NUR ---
SUMMARY PT REPORTS NO ABD PAIN OR N/V. PT HAVING FREQUENT DIARRHEA. NO BLOODY OR TARRY STOOLS NOTED. PT REPORTS FEELING BETTER. PT HAS SLEPT OFF AND ON DURING SHIFT. PT HAS REMAINED NPO THROUGHOUT SHIFT. PT CURRENTLY SLEEPING IN NO DISTRESS. CALL LIGHT IN REACH.
[2021-06-03 05:25] LABS: BASOPHILS ABSOLUTE AUTO 0.03 K/mm3 (0.00-0.23); BASOPHILS PERCENT AUTO 0 % (0-2); EOSINOPHILS ABSOLUTE AUTO 0.04 K/mm3 (0.00-0.68); EOSINOPHILS PERCENT AUTO 1 % (0-6); Hematocrit 30.2 % (37.0-53.0); Hemoglobin 9.9 g/dL (13.5-17.5); IMMATURE GRAN ABSOLUTE AUTO 0.01 K/mm3 (0.00-0.10); IMMATURE GRAN PERCENT AUTO 0 % (0-1); LYMPHOCYTES ABSOLUTE AUTO 3.46 K/mm3 (0.84-5.20); LYMPHOCYTES PERCENT AUTO 47 % (21-46); MONOCYTES ABSOLUTE AUTO 0.62 K/mm3 (0.16-1.47); MONOCYTES PERCENT AUTO 8 % (4-13); Mean Corpuscular HGB Conc 32.8 g/dL (31.5-36.5); Mean Corpuscular Volume 85 fL (80-100); Mean Platelet Volume 10.2 fL (9.1-12.4); NEUTROPHILS ABSOLUTE AUTO 3.24 K/mm3 (1.96-9.15); NEUTROPHILS PERCENT AUTO 44 % (41-73); Platelet Count 245 K/mm3 (150-400); RDW Coefficient Variation 15.2 % (11.7-14.2); RDW Standard Deviation 47.6 fL (35.1-46.3); Red Blood Cell Count 3.54 M/mm3 (4.30-5.90)
--- NOTE | 2021-06-03 05:25 | NUR ---
NG TUBE NG TUBE WAS NOT PLACED DUE TO PT NOT HAVING N/V OR ABD DISCOMFORT. PT IS HAVING PERIODS OF DIARRHEA. PT REPORTED HAVING SIGNIFICANT DISCOMFORT FROM PREVIOUS ATTEMPTS OF PLACING NG TUBE. WCTM PT.
[2021-06-03 05:43] LABS: Alanine Aminotransfer (ALT/SGP 20 U/L (12-78); Albumin, Blood 2.6 g/dL (3.4-5.0); Albumin/Globulin Ratio 0.7 (0.8-1.8); Alk Phos 132 U/L (50-136); Anion Gap 8 mmol/L (6-16); Aspartate Aminotrans (AST/SGOT 14 U/L (12-37); Bilirubin, Total 0.3 mg/dL (0.1-1.0); Blood Urea Nitrogen 25 mg/dL (8-24); CO2, Blood 18 mmol/L (21-32); Calcium, Blood 8.1 mg/dL (8.5-10.1); Chloride, Blood 111 mmol/L (98-108); Creatinine, Blood 0.83 mg/dL (0.60-1.20); Globulin, Blood 3.7 g/dL (2.2-4.0); Glomerular Filtration Rate >60 (60-); Glucose, Blood 82 mg/dL (70-99); Potassium, Blood 3.7 mmol/L (3.5-5.5); Sodium, Blood 137 mmol/L (136-145); Total Protein, Blood 6.3 g/dL (6.4-8.2)
--- NOTE | 2021-06-03 10:16 | NUR ---
REPORT GIVEN AND CARE TURNED OVER TO HANK Saleh RN.
[2021-06-03 14:01] LABS: Influenza A, PCR NEGATIVE (NEGATIVE); Influenza B, PCR NEGATIVE (NEGATIVE); Resp Syncytial Virus, PCR NEGATIVE (NEGATIVE); SARS-Cov-2 (COVID-19) PCR, MMC NEGATIVE (NEGATIVE)
--- NOTE | 2021-06-03 14:10 | NUR ---
PATIENT TO DAY SURGERY AT THIS TIME.
--- NOTE | 2021-06-03 14:13 | NUR ---
PATIENT TRASFERED TO [facility] VIA BED, ACCOMPANIED BY HIS DAUGHTER, ADRIA. PATIENT USING HIS DAUGHTER AN INTERPRETOR. PATIENT SPEAKS SOME LATVIAN. PATIENT STATES HE DOES NOT WANT TO USE THE PHONE INTERPERTOR AND WOULD LIKE HIS DAUGHTER TO CONTINUE TO INTERPRET.
[2021-06-04 07:27] LABS: BASOPHILS ABSOLUTE AUTO 0.01 K/mm3 (0.00-0.23); BASOPHILS PERCENT AUTO 0 % (0-2); EOSINOPHILS PERCENT AUTO 0 % (0-6); Hematocrit 32.3 % (37.0-53.0); Hemoglobin 10.4 g/dL (13.5-17.5); IMMATURE GRAN ABSOLUTE AUTO 0.02 K/mm3 (0.00-0.10); IMMATURE GRAN PERCENT AUTO 0 % (0-1); LYMPHOCYTES ABSOLUTE AUTO 2.16 K/mm3 (0.84-5.20); LYMPHOCYTES PERCENT AUTO 26 % (21-46); MONOCYTES ABSOLUTE AUTO 0.37 K/mm3 (0.16-1.47); MONOCYTES PERCENT AUTO 5 % (4-13); Mean Corpuscular HGB 27.6 pg (26.0-34.0); Mean Corpuscular HGB Conc 32.2 g/dL (31.5-36.5); Mean Corpuscular Volume 86 fL (80-100); Mean Platelet Volume 9.8 fL (9.1-12.4); NEUTROPHILS ABSOLUTE AUTO 5.68 K/mm3 (1.96-9.15); NEUTROPHILS PERCENT AUTO 69 % (41-73); Platelet Count 244 K/mm3 (150-400); RDW Coefficient Variation 15.6 % (11.7-14.2); Red Blood Cell Count 3.77 M/mm3 (4.30-5.90); White Blood Cell Count 8.24 K/mm3 (4.00-11.30)
[2021-06-04 07:55] LABS: Anion Gap 8 mmol/L (6-16); Blood Urea Nitrogen 11 mg/dL (8-24); Bun/Creatinine Ratio 18.1 (12.0-20.0); CO2, Blood 20 mmol/L (21-32); Calcium, Blood 7.5 mg/dL (8.5-10.1); Chloride, Blood 116 mmol/L (98-108); Creatinine, Blood 0.61 mg/dL (0.60-1.20); Glomerular Filtration Rate >60 (60-); Glucose, Blood 82 mg/dL (70-99); Potassium, Blood 3.5 mmol/L (3.5-5.5); Sodium, Blood 144 mmol/L (136-145)
--- NOTE | 2021-06-04 13:01 | NUR ---
NEW COMMERCIAL DECORATOR SYRINGE HUNG THIS AM. THIS RN VERIFIED WITH HERMES ROBERTS RN.
--- NOTE | 2021-06-04 16:08 | NUR ---
SHIFT SUMMARY PT POD #1 FOR EX LAP WITH SMALL BOWEL RESECTION. PT IS A/O X4; PLEASANT AND COOPERATIVE WITH CARE. PAIN CONTROLLED WELL USING INBOUND CALL CENTER AGENT PUMP. ADDITIONAL PT EDUCATION NEEDED ON THE INBOUND CALL CENTER AGENT PUMP AND HE SEEMS TO HAVE INCREASED UNDERSTANDING. NO FLATUS OR BM BUT PT IS VOIDING WELL. ABLE TO DRINK WELL BUT APPETITE HAS BEEN POOR. PT EXHIBITED SOME NAUSEA DURING BREAKFAST WHEN TRYING CLEAR LIQUID DIET. VSS. WILL REPORT TO URVASHI RN.
--- NOTE | 2021-06-05 05:50 | NUR ---
FIRE PROTECTION SPECIALIST SUMMARY NO ACUTE CHANGES THIS SHIFT. PT AAOX4 AND PLEASANT. 1 ASSIST FROM CHAIR TO BED. PT REPORTS ABD PAIN IS WELL MANAGED WITH CURRENT FENTANYL CUSTOMER RESOLUTION SPECIALIST. MIDLINE ABD PRESTON DRESSING WITH 3 SMALL SPOTS OF DRAINAGE UNCHANGED THIS SHIFT. HAS URINATED WELL TONIGHT, NO BM YET HOWEVER. VSS, WILL CONTINUE TO MONITOR.
--- NOTE | 2021-06-05 17:16 | NUR ---
SHIFT SUMMARY PT POD #2 FOR EX LAP WITH SMALL BOWEL RESECTION. PT'S ABD MORE DISTENDED AND TENDER TODAY. PT HAS STARTED TO WALK AROUND AND PASS A LOT OF GAS BUT NO BM. ONE INSTANCE OF NAUSEA AFTER EATING. INSPECTOR FINAL ASSEMBLY ELECTRICAL PUMP TO BE DC'D TOMORROW. VSS. WILL REPORT TO URVASHI ANDERSON.
--- NOTE | 2021-06-06 04:38 | NUR ---
PT IS A&OX4, VSS SBA TO BR AND IS ABLE TO MAKE NEEDS KNOWN. PT IS POST OP DAY 3 FOR A SBO, HAS HAD MULTIPLE VISITS SINCE JANUARY. IS CURRENTLY ON A SERVICE SECRETARY PUMP W/ FENTNYL FOR PAIN. PT COMPLAINS OF ABD DISCOMFORT, AND STATES THAT ABD IS TENDER TO THE TOUCH, MIDLINE INCISION, DRESSING IS CDI. PT HAS NO COMPLAINTS OF NAUSEA THIS SHIFT, TOLERATING A FULL LIQUID DIET. SLEEPS MOST OF SHIFT. WILL CONTINUE TO MONITOR THIS PATIENT.
--- NOTE | 2021-06-06 10:59 | NUR ---
FENTANYL GRAVURE PRESS OPERATOR DC'D EARLIER AND NORCO GIVEN FOR ABDOMINAL PAIN4-5 OUT OF 10. AT THIS TIME PT. IS RESTING WITH NO COMPLAINT. STATES HE IS PASSING SMALL AMOUNT FLATUS AND REPORTS A "NORMAL"BM LAST NIGHT. TAKING PO WELL, DENIES NAUSEA. PATIENT DOES HAVE SOME MILD DISTENTION WITH PRESTON DRSG. ON ABDOMEN INTACT, OLD SHADOW DRAINAGE PRESENT, SMALL AMOUNT.
--- NOTE | 2021-06-07 03:37 | NUR ---
PT IS A&OX4, VSS, INDEPENDENT IN ROOM AND IS ABLE TO MAKE NEEDS KNOWN. SLEEPS MOST OF THE NIGHT. PAIN IS WELL CONTROLED WITH PRN MEDICATIONS. MIDLINE INCISION DRESSING HAS SCANT DRAINAGE, ABD MILD TENDERNESS AND DISCOMFORT. PT STATES THAT THEY FEEL MUCH BETTER SINCE THEIR BM YESTERDAY. WILL CONTINUE TO MONITOR THIS PATIENT.
[2021-06-07 03:57] LABS: BASOPHILS ABSOLUTE AUTO 0.02 K/mm3 (0.00-0.23); BASOPHILS PERCENT AUTO 0 % (0-2); EOSINOPHILS ABSOLUTE AUTO 0.26 K/mm3 (0.00-0.68); EOSINOPHILS PERCENT AUTO 3 % (0-6); Hematocrit 27.8 % (37.0-53.0); Hemoglobin 9.1 g/dL (13.5-17.5); IMMATURE GRAN ABSOLUTE AUTO 0.07 K/mm3 (0.00-0.10); IMMATURE GRAN PERCENT AUTO 1 % (0-1); LYMPHOCYTES PERCENT AUTO 25 % (21-46); MONOCYTES ABSOLUTE AUTO 0.59 K/mm3 (0.16-1.47); MONOCYTES PERCENT AUTO 7 % (4-13); Mean Corpuscular HGB 27.7 pg (26.0-34.0); Mean Corpuscular HGB Conc 32.7 g/dL (31.5-36.5); Mean Corpuscular Volume 85 fL (80-100); Mean Platelet Volume 9.3 fL (9.1-12.4); NEUTROPHILS PERCENT AUTO 65 % (41-73); Platelet Count 192 K/mm3 (150-400); RDW Coefficient Variation 15.8 % (11.7-14.2); RDW Standard Deviation 49.2 fL (35.1-46.3); Red Blood Cell Count 3.28 M/mm3 (4.30-5.90); White Blood Cell Count 9.14 K/mm3 (4.00-11.30)
[2021-06-07 04:12] LABS: Anion Gap 4 mmol/L (6-16); Blood Urea Nitrogen 13 mg/dL (8-24); Bun/Creatinine Ratio 17.4 (12.0-20.0); CO2, Blood 30 mmol/L (21-32); Calcium, Blood 7.6 mg/dL (8.5-10.1); Chloride, Blood 104 mmol/L (98-108); Creatinine, Blood 0.75 mg/dL (0.60-1.20); Glomerular Filtration Rate >60 (60-); Glucose, Blood 103 mg/dL (70-99); Potassium, Blood 3.3 mmol/L (3.5-5.5); Sodium, Blood 138 mmol/L (136-145)
--- NOTE | 2021-06-07 14:25 | NUR ---
PT. TOLERATE JELLO AND WATER, NOW TAKING YOGURT AND CRACKERS. NORCO GIVEN FOR C/O 10/04 ABD. INCISIONAL PAIN. PATIENT PLAN ON DC THIS AFTERNOON. HAS BEEN UP MULTIPLE TIMES TO VOID, VSS.
--- NOTE | 2021-06-07 15:47 | NUR ---
PATIENT UP AND AMBULATING IN TRIMBLE TODAY, TOLERATE WELL. FOR LUNCH ATE 50% REG. TEXTURE ADA DIET. DENIED FEELING BLOATED AND DENIES NAUSEA. DR. DUARTE IN TO SEE PT. THIS A.M. PATIENT STATES NORCO IS EFFECTIVE FOR ABDOMINAL INCISIONAL DISCOMFORT.
--- NOTE | 2021-06-08 04:41 | NUR ---
AOX4. AMBULATING. TOLERATING DIET. VOIDING. BOWEL SOUND ACTIVE. PASSING GAS AND HAD BM. INCISION INTACT. DENIES PAIN. VSS. TELE NSR 70.
--- NOTE | 2021-06-08 05:00 | NUR ---
LEFT ARM IV REMOVED. SITE WAS SORE WITH REDNESS AND WARM TO TOUCH. PT DOES NOT WANT A NEW IV. PT IS LIKELY TO GO HOME TODAY. I WILL PASS ON THE DAY RN.
[2021-06-08] MEDS ORDERED: Norco 5-325 Ta1 EACH PO (13:16)
--- NOTE | 2021-06-08 14:34 | NUR ---
DISCHARGE PT IS EXCITED FOR DC. EATING, DRINKING, VOIDING, PASSING GAS, & BM's. PAIN TOLERABLE. SCRIPT SENT TO [facility] BY DR RICARDO. ESCORTED OUT VIA W/C.
== END 2021-06-08 14:20 | disposition home or self-care (01) | DRG 330 ==
LOC: ER 13:06 → SURS 18:35
PROVIDERS: Internal Medicine; Physician Assistant; Surgery; ADMIT Family Medicine
PROC: 0DB80ZZ Excision of Small Intestine, Open Approach (ICD-10-PCS; principal; 2021-06-02)
DX: K56.50 Intestinal adhesions [bands], unspecified as to partial versus complete obstruction (principal); N17.9 Acute kidney failure, unspecified; Z20.822 Contact with and (suspected) exposure to COVID-19; E86.0 Dehydration; Z72.89 Other problems related to lifestyle; I10 Essential (primary) hypertension; E78.5 Hyperlipidemia, unspecified; E11.9 Type 2 diabetes mellitus without complications; Z28.21 Immunization not carried out because of patient refusal; Z86.73 Personal history of transient ischemic attack (TIA), and cerebral infarction without residual deficits; Z90.49 Acquired absence of other specified parts of digestive tract; Z98.890 Other specified postprocedural states; Z79.899 Other long term (current) drug therapy
CPT/HCPCS: 0241U; 36415; 74018; 74177; 80048; 80053; 82947; 85025; 88307; 99285-25; A9270; J0295; J1100; J1650; J1885; J2250; J2370; J2405; J2704; J3010; J7030; J7042; J7050; J7120; Q9967

== ENCOUNTER 2024-12-03 08:02 | Day surgery (SDC) | payer OTHER ==
[2024-11-12 10:18] VITALS: BP 154/27
[2024-12-03] VITALS (16 sets, daily range): BP systolic 151–188; BP diastolic 61–90
[~2024-12-03] VITALS: Ht 165.1 cm; Wt 99.5 kg
[~2024-12-03 08:02] MED LIST changes: +CeFAZolin Sodium 2,000 MG in NS 100 ML IV SCH; +Chlorhexidine Mouth Care 15 ML UDC MT SCH; +FURO20 PO; +HYDROCHLOROTH12.5 MG PO; +Norco 5-325 Ta1 EACH PO; +Ropivacaine 0.5% HCl/Pf 123.125 MG,EPINEPHrine HCL 0.25 MG,Ketorolac Tromethamine 15 MG... INFIL SCH; +SIME80CH PO; +Tranexamic Acid 100 ML IV SCH
[2024-12-03] MEDS ORDERED: FentaNYL Citrate 50 MCG/ML 2 ML Injection ONE (09:09)
[2024-12-03] MEDS ORDERED: Midazolam HCl 1MG / ML 2ML Vial ONE (09:10)
--- NOTE | 2024-12-03 09:18 | NUR ---
History, Chart, Medications and Allergies reviewed before start of procedure. Pre-Op teaching done. Pt verbalizes understanding. Ambulatory in Day Surgery. Patient confirms NPO status and agrees with scheduled surgery. Patient States Post-Procedure ride home has been arranged. PATIENT ARABIC AND SOME ALBANIAN SPEAKING. DAUGHTER AT BEDSIDE TO HELP IF HE HAS QUESTIONS. PATIENT DECLINES USE OF FACTORY WORKER PHONE.
[2024-12-03] MEDS ORDERED: HYDROmorphone HCl/Pf 1MG SYR IV PRN ×3 (10:45→10:55)
[2024-12-03] MEDS ORDERED: FentaNYL Citrate 50 MCG/ML 2 ML Injection IV PRN ×2 (10:45→10:50)
--- NOTE | 2024-12-03 10:47 | NUR ---
12/03/24 1047 Iwona,Marlene SPINAL BLOCK COMPLETED BY UPON ENTRY TO OR.
[2024-12-03] MEDS ORDERED: Ondansetron HCl 2 MG / ML 2ML Vial IV PRN ×2 (10:50→11:00)
[2024-12-03] MEDS ORDERED: Ondansetron HCl 2 MG / ML 2ML Vial ONE (10:55)
[2024-12-03] MEDS ORDERED: Metoclopramide HCl 5MG / ML 2ML Vial IV PRN (11:00)
[2024-12-03] MEDS ORDERED: Magnesium Hydroxide Conc 10 ML UDC PO PRN (11:00)
[2024-12-03] MEDS ORDERED: Insulin Regular 100 UNIT/ML 10ML Vial SC SCH (11:30)
[2024-12-03] MEDS ORDERED: Ketorolac Tromethamine 15mg Vial IV SCH (12:00)
[2024-12-03] MEDS ORDERED: DOCU100 PO (14:17)
[2024-12-03] MEDS ORDERED: ACET500 PO (14:17)
[2024-12-03] MEDS ORDERED: ASPI81CH PO (14:17)
[2024-12-03] MEDS ORDERED: OXYC5 PO (14:18)
[2024-12-03] MEDS ORDERED: CeFAZolin Sodium 2,000 MG VIAL ONE (15:25)
[2024-12-03] MEDS ORDERED: CeFAZolin Sodium 2,000 MG in NS 100 ML IV SCH (16:00)
[2024-12-03] MEDS ORDERED: PROPOFOL 10 MG/ML IV ONE (17:01)
--- NOTE | 2024-12-03 18:33 | NUR ---
SHIFT SUMMARY PATIENT POST OP DAY 0 FOR LEFT KNEE REPLACEMENT. VSS. PATIENT MEDICATED PER EMAR FOR PAIN. PATIENT ABLE TO VOID USING URINAL. TOLERATING PO. NO OTHER CHANGES. WILL REPORT TO DRY WALL APPLICATOR RN.
[2024-12-04 04:21] VITALS: BP 157/69
[2024-12-04 04:26] LABS: BASOPHILS ABSOLUTE AUTO 0.04 K/mm3 (0.00-0.23); BASOPHILS PERCENT AUTO 0 % (0-2); EOSINOPHILS ABSOLUTE AUTO 0.07 K/mm3 (0.00-0.68); EOSINOPHILS PERCENT AUTO 1 % (0-6); Hematocrit 38.2 % (37.0-53.0); Hemoglobin 12.8 g/dL (13.5-17.5); IMMATURE GRAN ABSOLUTE AUTO 0.05 K/mm3 (0.00-0.10); IMMATURE GRAN PERCENT AUTO 0 % (0-1); LYMPHOCYTES ABSOLUTE AUTO 3.19 K/mm3 (0.84-5.20); LYMPHOCYTES PERCENT AUTO 21 % (21-46); MONOCYTES ABSOLUTE AUTO 1.17 K/mm3 (0.16-1.47); MONOCYTES PERCENT AUTO 8 % (4-13); Mean Corpuscular HGB Conc 33.5 g/dL (31.5-36.5); Mean Corpuscular Volume 91 fL (80-100); NEUTROPHILS ABSOLUTE AUTO 10.45 K/mm3 (1.96-9.15); NEUTROPHILS PERCENT AUTO 70 % (41-73); NRBC ABSOLUTE 0.00 K/mm3 (0.00-0.02); NRBC Auto 0.0 /100 WBC (0.0-0.2); Platelet Count 254 K/mm3 (150-400); RDW Coefficient Variation 14.2 % (11.7-14.2); RDW Standard Deviation 47.5 fL (35.1-46.3)
[2024-12-04 04:49] LABS: Anion Gap 8.0 mmol/L (3-11); Blood Urea Nitrogen 22.0 mg/dL (8-24); CO2, Blood 24.0 mmol/L (21-32); Calcium, Blood 8.3 mg/dL (8.5-10.1); Chloride, Blood 105.0 mmol/L (98-108); Creatinine, Blood 0.8 mg/dL (0.60-1.20); Glucose, Blood 110.0 mg/dL (70-99); Magnesium, Blood 2.1 mg/dL (1.6-2.4); Potassium, Blood 4.4 mmol/L (3.5-5.5); Sodium, Blood 133.0 mmol/L (136-145)
--- NOTE | 2024-12-04 05:38 | NUR ---
SHIFT SUMMARY FANNY WAS ALERT AND FULLY ORIENTED ON ASSESSMENT. PAIN MODERATLY WELL MANAGED. DRESSING C/D/I. CIRCULATION AND SENSATION TO EXTS INTACT. PT ABLE TO AMBULATE AND VOID APPROPRIATELY. PT DENIES NAUSEA, SOB, OR CHEST PAIN. NO ACUTE EVENTS OR NOTED CHANGES TO PT CONDITION.
[2024-12-04 07:38] VITALS: BP 182/70
[2024-12-04 08:59] VITALS: BP 165/72
--- NOTE | 2024-12-04 09:25 | NUR ---
DISCHARGE SUMMARY ADMITTED ON 12/03 FOR R TKA. A&O x4, HRR, VSS. SYSTOLIC BP ELEVATED THIS MORNING TO 180'S, MEDICATED PER EMAR w/HOME MEDS, IMPROVED PRIOR TO DC TO 160'S. STATES UNDERSTANDING OF IMPORTANCE OF RESUMING HOME BP MEDS USUAL. VOIDED SUCCESSFULLY. TOLERATING REGULAR DIET WELL. WORKED w/THERAPY THIS MORNING, AMBULATED IN HALLWAY. PIRNEO DRESSING OVER INCISION, C/D/I. PAIN CONTROLLED WELL PER EMAR. DISCHARGE INSTRUCTIONS REVIEWED & GIVEN, PT VERBALIZED UNDERSTANDING. ESCORTED OUT VIA WC.
== END 2024-12-04 09:25 | disposition home or self-care (01) ==
LOC: ORSCMMR 08:02 → ORD 09:30 → ORSCMMR 09:30 → SURS 12:34 → ORSCMMR 12-04 09:25
PROVIDERS: Orthopaedic Surgery
PROC: 0SRD0JA Replacement of Left Knee Joint with Synthetic Substitute, Uncemented, Open Approach (ICD-10-PCS; principal; 2024-12-03 09:30)
DX: M17.12 Unilateral primary osteoarthritis, left knee (principal); I10 Essential (primary) hypertension; E11.9 Type 2 diabetes mellitus without complications; Z79.85 Long-term (current) use of injectable non-insulin antidiabetic drugs; Z79.899 Other long term (current) drug therapy
CPT/HCPCS: 27447; 0055T; 36415; 73560-LT; 80048; 82947; 83735; 85025; 97110; 97116; 97161; A9270; C1713; C1776; J0166; J0690; J0735; J1885; J2250; J2405; J2704; J2795; J3010; J7120